=== PATIENT | female | born 1965 | race Caucasian/White ===

== ENCOUNTER 2021-12-16 10:11 | Inpatient (IN) | payer MEDICARE, MEDICAID, SELFPAY ==
--- NOTE | 2021-12-16 10:16 | XACV_ITS ---
Exam Room: [facility] Ht: 157 cm Wt: 61 kg BSA: 1.65 m2 Gender: Female : 1965 Any Known Allergies: No known allergies Exam Priority: Routine Procedure(s): Procedure Description: Diagnostic procedure Procedure Description: PCI procedure Procedure Description: Coronary IVUS Procedure Description: Drug Eluting Coronary Stent Procedure Description: PTCA Procedure Description: Miscellaneous Procedure Description: Angio-Seal Procedure Description: ACT Procedure Description: Coronary Angiography Diagnostic Cath Status: Emergency Diagnostic Findings * Ostial to Proximal Left Anterior Descending has a significant 80% hazy stenosis, PEACE: 3 flow. * Left Main has no disease. * Circumflex has no disease. * Mid Left Anterior Descending: moderate 50% stenosis, PEACE: 3 flow. * Mid Right Coronary Artery: obstructive 70% stenosis, PEACE: 3 flow. * Coronary angiography shows right dominance. PCI Status: Emergency PCI Indication: STEMI - Immediate PCI for STEMI Interventional Findings * PROCEDURE DETAIL: We engaged left main artery with XB 3.0 guide catheter. A 0.014 run-through guidewire was used to cross LAD stenosis and was placed in distal vessel. We predilated the ostial LAD stenosis with 2.5 x 12 mm noncompliant balloon. IVUS was then used to size the stent. We placed 3.0 x 15 mm resolute Eladio drug-eluting stent. Proximal LAD was postdilated with 3.25 x 8 mm noncompliant balloon. We then turned our attention to RCA. IVUS was used to size the stent. We predilated the lesion with a 2.5 x 12 mm semicompliant balloon. This was followed by placement of 4.0 x 38 mm resolute Eladio drug-eluting stent. At this time final angiogram was performed that showed excellent stent expansion, no residual stenosis and PEACE-3 flow. Guidewire and guide catheter were removed and patient left the Print And Pattern Designer in a stable condition.. * Proximal Left Anterior Descendin% stenosis treated with a AB TREK 2.50X12 RX BALLOON, ESTELLE Wise ELADIO 3.0X15 OSIEL, and ESTELLE HERNANDEZ EUPHORA RX 3.42I23EO BALLOON. 0% residual stenosis, PEACE: 3 flow. * Mid Right Coronary Artery: 70% stenosis treated with a AB TREK 2.50X12 RX BALLOON, and MDJhony R ELADIO 4.0X38 OSIEL. 0% residual stenosis, PEACE: 3 flow. Conclusions 1. Severe, hazy, thrombotic ostial LAD stenosis s/p successful revascularization with OSIEL x1. Severe proximal to mid RCA stenosis status post successful revascularization with OSIEL x1.. 2. Proximal Left Anterior Descending was treated with a Balloon, Drug Eluting Stent, and Balloon. 3. Mid Right Coronary Artery was treated with a Balloon, and Drug Eluting Stent. Recommendations * Aspirin and plavix for atleast 1 year. * High intensity statin therapy. * Transfer to ICU. * Beta jasvir and ACEi. * Cardiac rehab referral. * Has moderate mid LAD residual stenosis. Can plan on outpatient stress test later. Interventional RX Recommendation: PCI w/o planned CABG Diagnostic RX Recommendation: PCI w/o planned CABG Anticoagulation: Heparin Pressures Phase:Rest AO : 139 / 80 ( 105 ) @ 11:36:00 AM 119 / 61 ( 86 ) @ 11:51:00 AM 106 / 62 ( 81 ) @ 11:52:00 AM 137 / 76 ( 101 ) @ 11:57:00 AM 149 / 77 ( 107 ) @ 12:16:00 PM Clinical Evaluation EBL: 5mL-10mL Procedural Details Procedure Consent Obtained. Pre-Procedure Time Out. Identified patient by full name and date of as verbalized by the patient/guarantor. Does the consent match the physician's order: N/A Emergent. Accurate & Complete Informed Consent: N/A Emergent. Inpatient/Outpatient History & Physical on Chart: N/A Emergent. If H&P is completed, is and addenduem needed: N/A Emergent; If yes, is the addendum complete: N/A Emergent. Visualize and Verify Site with Patient/Guarantor: N/A. Relevant Radiology Images available: N/A Emergent. Pre-op teaching completed and patient verbalized understanding. The risks, benefits, and alternatives of sedation and/or procedure were discussed by physician. The patient agrees to continue. Procedure started. [facility] Clinical Fraility Score: 3: Managing Well. Print And Pattern Designer Indications: ACS <= 24 hours. Chest Pain Symptom Assessment: Typical Angina Symptoms. Cardiovascular Instability: No. Correct patient, site and procedure confirmed by cath team. PERRLA. 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 Lungs clear x 5 lobes. IV Site on Arrival: 22 gauge in the left hand. IV Site on Arrival: 20 gauge in the right wrist. IV Fluids: 0.9% NaCl at KVO. 0 mL infused prior to prosthetics lab technician. Oxygen started at 2liters/min via nasal canula. right radial was prepped with chloroprep then draped in the usual sterile fashion. right groin was prepped with chloroprep then draped in the usual sterile fashion. Baseline sample Acquired. HR: 99 BPM. Physician arrived. Physician scrubbed in. Immediate Pre-Procedure Time Out. Correct Patient: Yes; Correct Procedure: Yes; Correct Site: N/A Emergent; Correct Patient Position: N/A Emergent; Correct Supplies: N/A Emergent; Dried Flammable Prep: N/A Emergent; Blood Products Available: N/A Emergent;. Equipment: 6F - Radial. Cardiac Cath Pack. ACIST Manifold Kit Model BT 2000. Heparinized Saline (2 units/mL), 1000 mL bag. Lidocaine 1% infiltrated to the right radial. 600 mg Plavix pulled in ER by ER nurse. 600 mg Plavix given when pt arrived to prosthetics lab technician. Arterial access obtained. Inventory is CRD 6FR XB 3 GUIDE. A TR Band was successful obtaining hemostatsis at the Right Radial artery insertion site. TR band placed. Hemostasis obtained. Physician unable to advance sheath through radial artery due to difficult anatomy. Physician moving to femoral approach. Lidocaine 1% infiltrated to the right groin. Arterial access obtained with micropuncture set. 6 citizen of [place] XB 3 guide catheter was inserted over the wire. AP pads applied to pt. Runthrough guidewire was advanced through the guide catheter to lesion in the prox Circ. Inflation number : 1 A AB TREK 2.50X12 RX BALLOON was prepped and advanced across the Prox LAD , then inflated to 12 SOFIA for 0:06 seconds. Inflation number: 2 The AB TREK 2.50X12 RX BALLOON was reinflated across the Prox LAD, to 12 SOFIA for 0:05 seconds. Balloon out. Results checked. IVUS catheter inserted. IVUS measurements obtained. IVUS catheter removed. Inflation Number : 3 A MDT R ELADIO 3.0X15 OSIEL -Lot Number# [id number] exp date 09/11/2024 was prepped and advanced across the Prox LAD. The stent was deployed at 12 SOFIA for 0:21 seconds. Stent balloon out over wire. IVUS catheter inserted. ACT drawn. Results 352 seconds. Therapeutic limits - pre-heparin administration 90-150 seconds and monitoring heparin during a vascular procedure >250 seconds. IVUS measurements obtained. IVUS catheter removed. Inflation number : 4 A MDT NC EUPHORA RX 3.20I12JT BALLOON was prepped and advanced across the Prox LAD , then inflated to 12 SOFIA for 0:24 seconds. Inflation number: 5 The MDT NC EUPHORA RX 3.29I62GX BALLOON was reinflated across the Prox LAD, to 14 SOFIA for 0:12 seconds. Balloon out. Wire out. Results checked. Guide catheter out. A 5 citizen of [place] JR4 catheter in over wire. Multiple views taken of right coronary artery. Catheter out. Inventory is CRD 6FR JR 4 GUIDE 100cm. 6 citizen [place] JR 4 guide catheter was inserted over the wire. Runthrough guidewire was advanced through the guide catheter to lesion in the mid RCA. IVUS catheter inserted. IVUS measurement obtained. IVUS catheter removed. Inflation number: 1 The AB TREK 2.50X12 RX BALLOON was reinflated across the Mid RCA, to 12 SOFIA for 0:15 seconds. Inflation number: 2 The AB TREK 2.50X12 RX BALLOON was reinflated across the Mid RCA, to 12 SOFIA for 0:10 seconds. Inflation number: 3 The AB TREK 2.50X12 RX BALLOON was reinflated across the Mid RCA, to 12 SOFIA for 0:15 seconds. Inflation number: 4 The AB TREK 2.50X12 RX BALLOON was reinflated across the Mid RCA, to 12 SOFIA for 0:12 seconds. Balloon out. Inflation Number : 5 A ESTELLE Wise ELADIO 4.0X38 OSIEL -Lot Number# [id number] exp date 07/01/2024 was prepped and advanced across the Mid RCA. The stent was deployed at 12 SOFIA for 0:24 seconds. Stent balloon out over wire. Results checked. Wire out. Guide catheter out. ACT drawn. Results 260 seconds. Therapeutic limits - pre-heparin administration 90-150 seconds and monitoring heparin during a vascular procedure >250 seconds. Lidocaine 1% infiltrated to the right groin. A Angio-Seal VIP ([facility] [place]) was successful obtaining hemostatsis at the Right Femoral artery insertion site. Angioseal placed without complications. No signs or symptoms of hematoma noted. Sterile dressing applied per usual sterile fashion. Post Procedure: Pulses reassessed and unchanged. PERRLA. 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 No VTE prophylaxis required. Physician scrubbed out. Medication's Wasted: Nitro = 49.6 mg. Medication's Wasted: Heparin = 2000 units. Total IV fluids: 450 mL. Contrast type used: Omnipaque 300 mgI/mL, 500 mL bottle. PCI Indication: STEMI. Post-op diagnosis: stemi. Complications: none. Estimated blood loss: 5mL-10mL. Responsiveness - Normal response to verbal stimuli; alert and oriented, PERRLA. Airway - Unaffected, no intervention required; spontaneous ventilation. Circulation: W/N/L, pulses unchanged. Nausea/Vomiting: No. Procedure completed. Patient transferred by bed to ICU. Vital chart was stopped. Access Site Site: Right Radial artery Sheath Size: 6 Fr Hemostasis Method: TR Band Hemostasis Success: Successful Site: Right Femoral artery Sheath Size: 6 Fr Hemostasis Method: Angio-Seal VIP ([facility]) Hemostasis Success: Successful Procedure Medications Start: 10:21 AM Stop: 10:21 AM Medication: Heparin 25, 000units/500 mL Amount: units Route: I.V. Start: 10:23 AM Stop: 10:23 AM Medication: Versed Amount: 1 mg Route: I.V. Start: 10:23 AM Stop: 10:23 AM Medication: Fentanyl Amount: 50 mcg Route: I.V. Start: 10:28 AM Stop: 10:28 AM Medication: Versed Amount: 1 mg Route: I.V. Start: 10:33 AM Stop: 10:33 AM Medication: Heparin Amount: 2000 units Route: I.V. Start: 10:39 AM Stop: 10:39 AM Medication: Heparin Amount: 1000 units Route: I.V. Start: 10:39 AM Stop: 10:39 AM Medication: Versed Amount: 1 mg Route: I.V. Start: 10:39 AM Stop: 10:39 AM Medication: Fentanyl Amount: 25 mcg Route: I.V. Start: 10:48 AM Stop: 10:48 AM Medication: Heparin Amount: 1000 units Route: I.V. Start: 10:53 AM Stop: 10:53 AM Medication: Nitrogylcerin Amount: 200 mcg Route: I.C. Start: 10:55 AM Stop: 10:55 AM Medication: Versed Amount: 1 mg Route: I.V. Start: 11:16 AM Stop: 11:16 AM Medication: Nitrogylcerin Amount: 200 mcg Route: I.C. Start: 11:21 AM Stop: 11:21 AM Medication: Fentanyl Amount: 25 mcg Route: I.V. Start: 11:22 AM Stop: 11:22 AM Medication: Heparin Amount: 1000 units Route: I.V. I, the attending physician, have reviewed and verified all procedure medications. Yes, all medications given per verbal order History/Risk Factors Hypertension: No Dyslipidemia: No Peripheral Arterial Disease (PAD): No Myocardial Infarction (NH): No Obesity: No Renal Disease: No Prior Interventions PCI: No CABG: No Valve Surgery: No Report Signatures Finalized by Giovany Nye MD on 12/30/2021 12:39 PM
--- NOTE | 2021-12-16 10:19 | ED_ITS ---
HPI - Chest Pain General: Stated Complaint: possible stemi Time Seen by Provider: 12/16/21 10:18 Source: patient Mode of arrival: EMS History of Present Illness: 56-year-old female brought in by EMS with complaints of chest pain that began this morning while at rest. She has severe chest pain radiating to the left arm she given nitro and aspirin in route. EKG in the field showed ST elevation in a STEMI alert was called Airline Mechanic crew and Dr. Nye were present on arrival patient states chest pain is better but still persisting. Review of EMS EKG confirms diagnosis. Dr. Nye elected to take the patient based on that EKG. Plavix and heparin ordered here in the emergency room. Limited history and exam due to ST elevation NE and urgent need for coronary angioplasty complaint: chest pain Onset (ago): minute(s) Prior episodes: Yes Onset: during rest Pain location: left chest Pain radiation: left arm and left shoulder Severity: severe Quality: aching and heaviness Relieving factors: nitroglycerin Exacerbating factors: nothing Associated symptoms: Reports diaphoresis, dyspnea, nausea and sense of impending doom; Deny abdominal pain, fever(s), leg edema, palpitations, syncope or vomiting Treatment prior to arrival: aspirin and nitroglycerin Review of Systems General: Reports: Other (Limited due to patient's condition and urgent need for angiography.) Const: Reports: diaphoresis; Denies: fever(s) Card: Denies: palpitations or syncope Resp: Reports: dyspnea GI: Reports: nausea; Denies: abdominal pain or vomiting Physical Exam Const: COMMON NORMALS: no acute distress GENERAL APPEARANCE: cooperative and comfortable ORIENTATION/CONSCIOUSNESS: Yes awake, Yes oriented to person, Yes oriented to place and Yes oriented to time HENMT: COMMON NORMALS: normocephalic, atraumatic and hearing grossly normal bilaterally HEAD & SCALP: normocephalic and atraumatic Neck/C-Spine: COMMON NORMALS: no JVD Resp: COMMON NORMALS: normal respiratory effort, No retractions, No use of accessory muscles and clear to auscultation bilaterally AUSCULTATION: clear to auscultation bilaterally Cardio: COMMON NORMALS: no JVD, regular rate, regular rhythm and No murmurs present (Cardio) RATE: regular rate RHYTHM: regular rhythm GI: COMMON NORMALS: Soft to palpation and No hepatosplenomegaly present AUSCULTATION: Yes normoactive bowel sounds PALPATION: Yes Soft to palpation, No Tenderness to palpation present (GI), No Guarding due to palpation present (GI) and Yes No hepatosplenomegaly present Neuro: SENSORIUM/ORIENTATION: Yes oriented to person, Yes oriented to place and Yes oriented to time MDM - Chest Pain Medical Decision Making Field EKG scanned into the chart. Shows ST elevation anterior lateral leads. Dr. Nye present and confirms Plavix and heparin ordered. Patient taken emergently to coronary angiography Medical Records I reviewed the patient's medical records. Discharge Plan Discharge Patient Disposition: Admitted As Inpatient Clinical Impression: ST elevation (STEMI) myocardial infarction Condition: Stable Referrals: Nicol Capps DPM [Primary Care Provider] - Coding Level of Care Code ED Hospital Clinic Assistant for Artie Ba
--- NOTE | 2021-12-16 10:20 | PM.HP ---
Providers/Chief Complaint Admitting Physician: Giovany Nye MD/ Cardiology Primary Care Provider: MONA aKur Chief Complaint: STEMI History of Present Illness Swati Lomax is a 56 year old female with past medical history of hypertension and current smoker has been brought in by EMS for severe chest pain. According to patient she started having chest pain about 2 hours prior to presentation to the hospital. It was substernal and epigastric. Radiation to the left arm was noted. No prior significant cardiac history. EKG demonstrated ST elevations in leads V3 through V6. Television Installer Helper was activated and patient was brought to the Television Installer Helper emergently. She was loaded with aspirin in the field and also received Plavix 600mg and heparin bolus in ER. Coronary angiography showed severe narrowing of ostial LAD with presence of thrombus. She underwent successful revascularization with IVUS guidance of ostial LAD with OSIEL x1. Patient also had severe proximal to mid RCA stenosis and underwent successful revascularization with OSIEL x1. Review of Systems General: Reports: Other (Limited due to patient's condition and urgent need for angiography.) Const: Reports: diaphoresis; Denies: fever(s) Card: Reports: chest pain and dyspnea on exertion; Denies: palpitations or syncope Resp: Reports: dyspnea GI: Reports: nausea; Denies: abdominal pain or vomiting PFSH Acute PFSH: Medical History Hypertension Tobacco abuse Social History Smoking and tobacco status: current every day smoker Physical Exam Narrative: GENERAL: Patient is alert, awake and oriented x3. [] NECK: No jugular vein distension. [] HEENT: No cyanosis. No icterus. No pallor. [] HEART: Regular S1 and S2. No murmur, rub or gallop. [] LUNGS: Clear to auscultate bilaterally. [] ABDOMEN: Soft, nontender and nondistended. Positive bowel sounds. No guarding, rebound or tenderness. [] CENTRAL NERVOUS SYSTEM: Grossly nonfocal. [] EXTREMITIES: Lower extremities with no edema bilaterally. Pulses palpable in the lower extremities, both dorsalis pedis and posterior tibial. [] Data : 12/16/21 10:50 12/16/21 10:50 A&P Assessment and plan (1) ST elevation (STEMI) myocardial infarction: Status: Acute (2) Hypertension: Status: Acute (3) Tobacco abuse: Status: Acute Plan Patient has presented with acute anterior wall ST elevation [place]. She underwent coronary angiography emergently that demonstrated thrombotic stenosis of ostial LAD that underwent successful revascularization with OSIEL x1. She also had severe proximal to mid RCA stenosis and underwent a revascularization with OSIEL x1. Continue aspirin and Plavix for at least 1 year. High intensity statin therapy. Beta-jasvir and MAURICE inhibitor's. Order echocardiogram. Patient has residual mid LAD moderate stenosis. As an outpatient can undergo stress test to evaluate for ischemia. Attestations Medical Necessity Statement*: Care expected to cross 2 midnights. Coding Level of Care Code Acute Tuber Machine Cutter for Artie Ba Diagnoses ST elevation (STEMI) myocardial infarction I21.3 Hypertension I10 Tobacco abuse Z72.0
[2021-12-16 11:11] LABS: Basophils % 0.6 %; Eosinophils % 0.5 %; Hematocrit 38.1 % (37.0-47.0); Hemoglobin 13.2 g/dL (11.5-15.3); Lymphocytes # 1.2 10^3/uL (0.8-4.8); Lymphocytes % 18.4 %; Mean Corpuscular HGB Conc 34.6 g/dL (30.0-36.0); Mean Corpuscular Hemoglobin 33.3 pg (28.0-34.0); Mean Corpuscular Volume 96.2 fl (81-99); Mean Platelet Volume 9.5 fL (7.4-10.4); Monocytes # 0.6 10^3/uL (0.2-0.9); Monocytes % 9.4 %; Neutrophils # 4.69 10^3/uL (1.8-7.7); Neutrophils % 70.6 %; Nucleated Red Blood Cells % 0 %; Platelet Count 267 10^3/cmm (130-400); Red Blood Count 3.96 10^6/uL (4.1-5.3); Red Cell Distribution Width 12.5 % (12.1-15.1); White Blood Count 6.6 10^3/uL (4.0-10.0)
[2021-12-16 11:30] LABS: Anion Gap 16.7 (5-19); Blood Urea Nitrogen 10 mg/dL (6-20); Calcium 8.1 mg/dL (8.5-10.5); Carbon Dioxide 19 mmol/L (22-29); Chloride 99 mmol/L (98-107); Glomerular Filtration Rate 85.9 mL/min (90-130); Glucose 110 mg/dL (65-115); Osmolality Calculated 272 mOsm/kg (285-295); Potassium 3.7 mmol/L (3.5-5.1); Sodium 131 mmol/L (136-145)
[2021-12-16 11:33] LABS: Troponin T (5th) Once 941 ng/L (0-10)
--- NOTE | 2021-12-16 12:02 | USCV_ITS ---
Lomax Swati Age: 56 Gender: F : 1965 Exam Date: 12/16/2021 13:35 Ordering Phys: Giovany Nye M.D ([email or web address]) Technologist: Jah Giles Exam Location: [facility] [place] Indication: post stemi BP: 155 / 95 HR: 93 Rhythm: Sinus Technical Quality: Adequate MEASUREMENTS (Male / Female) Normal Values 2D ECHO LV Diastolic Diameter PLAX 4.0 cm 4.2 - 5.9 / 3.9 - 5.3 cm LV Systolic Diameter PLAX 2.8 cm IVS Diastolic Thickness 1.2 cm 0.6 - 1.0 / 0.6 - 0.9 cm IVS Systolic Thickness 1.4 cm LVPW Diastolic Thickness 1.5 cm 0.6 - 1.0 / 0.6 - 0.9 cm LVPW Systolic Thickness 1.4 cm LVOT Diameter 2.0 cm LV Ejection Fraction 2D Teich 59.0 % LV Ejection Fraction MOD 2C 72.0 % LV Ejection Fraction 2C AL 71.2 % LA Diameter 2.7 cm LA Width 2.1 cm Aorta at Sinotubular Diameter 2.7 cm IVC Diameter 1.9 cm M-MODE Aortic Annulus Diameter 2.3 cm LA Ao Ratio MM 1.3 MV E Point Septal Separation 1.3 cm DOPPLER AV Peak Velocity 130.0 cm/s LVOT Peak Velocity 99.0 cm/s AV Area Cont Eq vti 2.7 cm squared AV Area Cont Eq pk 2.4 cm squared MV Area PHT 5.0 cm squared Mitral E to A Ratio 0.8 MV E' Velocity 42.0 cm/s Mitral E to MV E' Ratio 10.9 Mitral E to LV E' Lateral Ratio 10.6 Mitral E to LV E' Septal Ratio 11.3 TR Peak Velocity 159.0 cm/s TR Peak Gradient 10.1 mmHg TV Peak E Velocity 123.0 cm/s Right Atrial Pressure 3.0 mmHg Pulmonary Artery Systolic Pressu 13.1 mmHg PV Peak Velocity 120.0 cm/s FINDINGS Left Ventricle Normal left ventricular size. LV systolic function is normal with EF of 40-45%. Mild to moderate hypokinesis of anterior, apical and anteroseptal buchanan. Grade 1 diastolic dysfunction Right Ventricle The right ventricle is normal in size and function. Right Atrium The right atrium is normal in size. Left Atrium The left atrium is normal in size. Mitral Valve Structurally normal mitral valve without significant stenosis or prolapse. There is no mitral regurgitation. Aortic Valve Structurally normal aortic valve without significant sclerosis or stenosis. There is no aortic regurgitation. Tricuspid Valve Structurally normal tricuspid valve without significant stenosis or regurgitation. Insufficient TR jet to calculate RVSP. Pulmonic Valve Structurally normal pulmonic valve without significant stenosis. There is no pulmonic regurgitation. Pericardium Normal pericardium without effusion. Aorta Normal ascending aorta dimension. CONCLUSIONS LV systolic function is normal with EF of 40 to 45%. Mild to moderate hypokinesis of anterior, apical and anteroseptal buchanan. Grade 1 diastolic dysfunction. No significant valvular heart disease seen No comparison studies are available Giovany Nye MD (Electronically Signed) Final Date: 16 Dec 2021 18:16 S
[2021-12-16] MEDS: sodium chloride 0.9% 1,000 ML 100 ML IV ×2 (12:13→23:00)
--- NOTE | 2021-12-16 12:17 | PC.NURSE ---
Arrived from microbiology lab technician, AO x4, TR band to R wrist clean dry and intact, R groin access site covered with gauze and tega derm clean and dry
--- NOTE | 2021-12-16 13:38 | PC.PHAR ---
pt states she takes no rx medications-pt states she hasnt seen a dr in over 5 years pt states she use to be on alot of different medications pt states she stop taking her meds 5 years ago-pt states she only takes a purple tab thats a sleep aid from [employer] [facility]-
--- NOTE | 2021-12-16 13:44 | PC.NURSE ---
Plant Specialist took pt before meds could be administered or nurse assessment could be completed.
[2021-12-16 14:00] VITALS: PULSE 79
[2021-12-16 18:00] VITALS: BP 150/96; PULSE 90; RESP 21
[2021-12-16 20:00] VITALS: BP 139/101; PULSE 80; RESP 27; TEMP 37; O2SAT 95
[2021-12-16] MEDS: metoprolol tartrate 25 mg Tablet PO (20:12)
[2021-12-16] MEDS: atorvastatin 40 mg Tablet 80 MG PO (20:12)
[2021-12-16 22:00] VITALS: BP 140/92; PULSE 71; RESP 19; O2SAT 94
[2021-12-17] VITALS (16 sets, daily range): BP systolic 112–157; BP diastolic 61–96; PULSE 60–88; RESP 16–25; TEMP 36.8–36.9; O2SAT 94–97
[2021-12-17 04:42] LABS: Basophils # 0.1 10^3/uL (0.0-0.1); Basophils % 0.8 %; Eosinophils # 0.2 10^3/uL (0.0-0.8); Hematocrit 41.4 % (37.0-47.0); Hemoglobin 13.6 g/dL (11.5-15.3); Lymphocytes # 2.3 10^3/uL (0.8-4.8); Lymphocytes % 30.1 %; Mean Corpuscular HGB Conc 32.9 g/dL (30.0-36.0); Mean Corpuscular Hemoglobin 33.3 pg (28.0-34.0); Mean Corpuscular Volume 101.2 fl (81-99); Monocytes # 0.7 10^3/uL (0.2-0.9); Monocytes % 8.5 %; Neutrophils # 4.47 10^3/uL (1.8-7.7); Neutrophils % 58.1 %; Nucleated Red Blood Cells % 0 %; Platelet Count 247 10^3/cmm (130-400); Red Blood Count 4.09 10^6/uL (4.1-5.3); Red Cell Distribution Width 12.8 % (12.1-15.1); White Blood Count 7.7 10^3/uL (4.0-10.0)
[2021-12-17 05:43] LABS: Blood Urea Nitrogen 9 mg/dL (6-20); Calcium 8.5 mg/dL (8.5-10.5); Carbon Dioxide 14 mmol/L (22-29); Chloride 103 mmol/L (98-107); Glomerular Filtration Rate 126.7 mL/min (90-130); Glucose 94 mg/dL (65-115); Osmolality Calculated 274 mOsm/kg (285-295); Sodium 133 mmol/L (136-145)
[2021-12-17 05:45] LABS: Anion Gap 20.1 (5-19); Potassium 4.1 mmol/L (3.5-5.1)
[2021-12-17] MEDS: aspirin 81 mg EC Tablet PO (08:35)
[2021-12-17] MEDS: metoprolol tartrate 25 mg Tablet PO ×2 (08:35→20:19)
[2021-12-17] MEDS: lisinopril 5 mg Tablet PO (08:35)
[2021-12-17] MEDS: clopidogrel 75 mg Tablet PO (08:35)
--- NOTE | 2021-12-17 16:58 | PM.PN ---
Subjective Subjective: Patient is doing well. No complaints of chest pain or shortness of breath Vitals/I&O/Wt Last Vital Signs Temp 98.3 F 12/17/21 14:00 Pulse 88 12/17/21 14:00 Resp 18 12/17/21 14:00 BP 131/72 12/17/21 16:00 Pulse Ox 94 12/17/21 14:00 12/17/21 12/17/21 12/17/21 06:59 14:59 22:59 Intake Total 350 / 350 Output Total 350 / 500 Balance -350 / 900 350 / 350 Physical Exam Narrative: GENERAL: Patient is alert, awake and oriented x3. [] NECK: No jugular vein distension. [] HEENT: No cyanosis. No icterus. No pallor. [] HEART: Regular S1 and S2. No murmur, rub or gallop. [] LUNGS: Clear to auscultate bilaterally. [] ABDOMEN: Soft, nontender and nondistended. Positive bowel sounds. No guarding, rebound or tenderness. [] CENTRAL NERVOUS SYSTEM: Grossly nonfocal. [] EXTREMITIES: Lower extremities with no edema bilaterally. Pulses palpable in the lower extremities, both dorsalis pedis and posterior tibial. [] Data : 12/17/21 03:17 12/17/21 03:17 A&P Assessment and plan (1) ST elevation (STEMI) myocardial infarction: Status: Acute (2) Hypertension: Status: Acute (3) Tobacco abuse: Status: Acute Plan Patient has presented with acute anterior wall ST elevation [place]. She underwent coronary angiography emergently that demonstrated thrombotic stenosis of ostial LAD that underwent successful revascularization with OSIEL x1. She also had severe proximal to mid RCA stenosis and underwent a revascularization with OSIEL x1. Continue aspirin and Plavix for at least 1 year. High intensity statin therapy. Beta-jasvir and MAURICE inhibitor's initiated Detailed discussion done regarding smoking cessation. ECHO shows mildly reduced LV systolic function Patient has residual mid LAD moderate stenosis. As an outpatient can undergo stress test to evaluate for ischemia. Plan for discharge tomorrow Attestations Medical Necessity Statement*: Care expected to cross 2 midnights. Coding Level of Care Code Acute Dewatering Filtering Supervisor for Artie Ba Diagnoses ST elevation (STEMI) myocardial infarction I21.3 Hypertension I10 Tobacco abuse Z72.0
[2021-12-17] MEDS: atorvastatin 40 mg Tablet 80 MG PO (20:20)
[2021-12-18] VITALS (10 sets, daily range): BP systolic 131–138; BP diastolic 69–96; PULSE 63–79; RESP 12–20; TEMP 36.7; O2SAT 95–98
[2021-12-18 04:34] LABS: Basophils # 0.1 10^3/uL (0.0-0.1); Basophils % 0.6 %; Eosinophils # 0.1 10^3/uL (0.0-0.8); Eosinophils % 1.6 %; Hematocrit 36.2 % (37.0-47.0); Hemoglobin 12.7 g/dL (11.5-15.3); Lymphocytes # 2.3 10^3/uL (0.8-4.8); Lymphocytes % 26.2 %; Mean Corpuscular HGB Conc 35.1 g/dL (30.0-36.0); Mean Corpuscular Volume 96.8 fl (81-99); Mean Platelet Volume 10.8 fL (7.4-10.4); Monocytes # 0.8 10^3/uL (0.2-0.9); Monocytes % 8.9 %; Neutrophils # 5.35 10^3/uL (1.8-7.7); Neutrophils % 62.2 %; Nucleated Red Blood Cells % 0 %; Platelet Count 239 10^3/cmm (130-400); Red Blood Count 3.74 10^6/uL (4.1-5.3); Red Cell Distribution Width 12.5 % (12.1-15.1); White Blood Count 8.6 10^3/uL (4.0-10.0)
[2021-12-18 07:32] LABS: Anion Gap 15.7 (5-19); Blood Urea Nitrogen 6 mg/dL (6-20); Calcium 8.8 mg/dL (8.5-10.5); Carbon Dioxide 21 mmol/L (22-29); Chloride 102 mmol/L (98-107); Glomerular Filtration Rate 163.9 mL/min (90-130); Glucose 100 mg/dL (65-115); Osmolality Calculated 278 mOsm/kg (285-295); Potassium 3.7 mmol/L (3.5-5.1); Sodium 135 mmol/L (136-145)
[2021-12-18] MEDS: aspirin 81 mg EC Tablet PO (09:10)
[2021-12-18] MEDS: metoprolol tartrate 25 mg Tablet PO (09:10)
[2021-12-18] MEDS: clopidogrel 75 mg Tablet PO (09:10)
[2021-12-18] MEDS: lisinopril 5 mg Tablet PO (09:10)
--- NOTE | 2021-12-18 09:14 | P.DS_ITS ---
Discharge Providers Date of Admission: 12/16/21 10:57 Date of Discharge: December 18, 2021 Attending Provider at Admission: Giovany Nye M.D Attending Provider at Discharge: Giovany Nye M.D Diagnoses at Discharge Discharge Diagnosis (1) ST elevation (STEMI) myocardial infarction: (2) Hypertension: Status: Acute (3) Tobacco abuse: Status: Acute Reason for Visit Reason for Visit: STEMI Brief History: 56 year old female with past medical history of hypertension and current smoker has been brought in by EMS for severe chest pain.? According to patient she started having chest pain about 2 hours prior to presentation to the hospital.? It was substernal and epigastric.? Radiation to the left arm was noted.? No prior significant cardiac history.? EKG demonstrated ST elevations in leads V3 through V6.? Opto Mechanical Engineer was activated and patient was brought to the Opto Mechanical Engineer emergently.? She was loaded with aspirin in the field and also received Plavix 600mg and heparin bolus in ER. Hospital Course Hospital Course 56 year old female with past medical history of hypertension and current smoker has been brought in by EMS for severe chest pain.? According to patient she started having chest pain about 2 hours prior to presentation to the hospital.? It was substernal and epigastric.? Radiation to the left arm was noted.? No prior significant cardiac history.? EKG demonstrated ST elevations in leads V3 through V6.? Opto Mechanical Engineer was activated and patient was brought to the Opto Mechanical Engineer emergently.? She was loaded with aspirin in the field and also received Plavix 600mg and heparin bolus in ER.? Coronary angiography showed severe narrowing of ostial LAD with presence of thrombus.? She underwent successful revascularization with IVUS guidance of ostial LAD with OSIEL x1.? Patient also had severe proximal to mid RCA stenosis and underwent successful revascularization with OSIEL x1. Patient stayed in the hospital and was stable. Echocardiogram showed mildly reduced LV systolic function with EF of 40 to 45%. Regional wall motion abnormalities were seen in the distribution of LAD territory. Patient was discharged home with outpatient cardiology follow-up. Physical Exam Narrative: GENERAL: Patient is alert, awake and oriented x3. [] NECK: No jugular vein distension. [] HEENT: No cyanosis. No icterus. No pallor. [] HEART: Regular S1 and S2. No murmur, rub or gallop. [] LUNGS: Clear to auscultate bilaterally. [] ABDOMEN: Soft, nontender and nondistended. Positive bowel sounds. No guarding, rebound or tenderness. [] CENTRAL NERVOUS SYSTEM: Grossly nonfocal. [] EXTREMITIES: Lower extremities with no edema bilaterally. Pulses palpable in the lower extremities, both dorsalis pedis and posterior tibial. [] Discharge Data Studies Completed and Pending Completed Studies During Hospitalization Category Date Time Status CV. 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 request for service Stat Exams 12/16/21 10:16 Taken Basic Metabolic Panel AM LABS Lab 12/19/21 04:00 Ordered Complete Blood Count w/Auto AM LABS Lab 12/19/21 04:00 Ordered Laboratory Results WBC 8.6 10^3/uL (4.0-10.0) 12/18/21 03:55 RBC 3.74 10^6/uL (4.1-5.3) L 12/18/21 03:55 Hgb 12.7 g/dL (11.5-15.3) 12/18/21 03:55 Hct 36.2 % (37.0-47.0) L 12/18/21 03:55 MCV 96.8 fl (81-99) 12/18/21 03:55 MCH 34.0 pg (28.0-34.0) 12/18/21 03:55 MCHC 35.1 g/dL (30.0-36.0) D 12/18/21 03:55 RDW 12.5 % (12.1-15.1) 12/18/21 03:55 Plt Count 239 10^3/cmm (130-400) 12/18/21 03:55 MPV 10.8 fL (7.4-10.4) H 12/18/21 03:55 Neut % (Auto) 62.2 % 12/18/21 03:55 Lymph % (Auto) 26.2 % 12/18/21 03:55 Cotton % (Auto) 8.9 % 12/18/21 03:55 Eos % (Auto) 1.6 % 12/18/21 03:55 Baso % (Auto) 0.6 % 12/18/21 03:55 Neut # (Auto) 5.35 10^3/uL (1.8-7.7) 12/18/21 03:55 Lymph # (Auto) 2.3 10^3/uL (0.8-4.8) 12/18/21 03:55 Cotton # (Auto) 0.8 10^3/uL (0.2-0.9) 12/18/21 03:55 Eos # (Auto) 0.1 10^3/uL (0.0-0.8) 12/18/21 03:55 Baso # (Auto) 0.1 10^3/uL (0.0-0.1) 12/18/21 03:55 Nucleated RBC % (auto) 0 % 12/18/21 03:55 Nucleated RBCs # 0.0 /100WBC 12/18/21 03:55 Sodium 135 mmol/L (136-145) L 12/18/21 06:49 Potassium 3.7 mmol/L (3.5-5.1) 12/18/21 06:49 Chloride 102 mmol/L (98-107) 12/18/21 06:49 Carbon Dioxide 21 mmol/L (22-29) L 12/18/21 06:49 Anion Gap 15.7 (5-19) 12/18/21 06:49 BUN 6 mg/dL (6-20) 12/18/21 06:49 Creatinine 0.4 mg/dL (0.5-0.9) L 12/18/21 06:49 GFR Calculation 163.9 mL/min (90-130) H 12/18/21 06:49 Glucose 100 mg/dL (65-115) 12/18/21 06:49 Calculated Osmolality 278 mOsm/kg (285-295) L 12/18/21 06:49 Calcium 8.8 mg/dL (8.5-10.5) 12/18/21 06:49 Troponin T Gen 5 ng/L 941 ng/L (0-10) H* 12/16/21 10:50 Vitals Last Vital Signs Temp 98.0 F 12/18/21 03:38 Pulse 79 12/18/21 09:00 Resp 16 12/18/21 09:00 BP 137/69 12/18/21 09:00 Pulse Ox 98 12/18/21 09:00 Discharge Plan Discharge Patient Disposition: Home Condition: Stable Prescriptions: New aspirin 81 mg Tablet,Delayed Release (Dr/Ec) 81 mg PO DAILY Qty: 90 3RF atorvastatin 40 mg Tablet 80 mg PO BEDTIME Qty: 90 3RF clopidogrel 75 mg Tablet 75 mg PO DAILY Qty: 90 3RF nitroglycerin 0.4 mg Tablet, Sublingual 0.4 mg sublingual Q5M PRN (Reason: Chest Pain) Qty: 30 0RF lisinopril 5 mg Tablet 5 mg PO DAILY Qty: 90 3RF metoprolol tartrate 25 mg Tablet 25 mg PO BID@0900,2100 Qty: 120 2RF Continued Sleep Aid (diphenhydramine) 25 mg Tablet 25 mg PO BEDTIME PRN (Reason: Sleep) 0RF Discharge Orders: Discharge Order (Routine); Ordered 12/18/21 Ordered By: iGovany Nye Referrals: Alexnadre Harvey DO [Physician] - (For new patient referral, have scheduled you for follow up with for the following date of Saturday, DECEMBER 25, 2021 TIME OF 10:00 AM) Giovany Nye M.D [Physician] - 1 month (this appointment has been scheduled -FEBRUARY 05, TIME OF 3:45 PM ) Katerina Paul FNP [Nurse Practitioner] - 7-10 days (this appointment has been scheduled ,Thursday time of 11:00 am will need wound check , from angiogram procedure and lab test ,) Discharge Diet: Cardiac Discharge Activity: Increase activity as tolerated Patient Instructions: Metoprolol (By mouth), Nitroglycerin (By mouth), Lisinopril (By mouth), Aspirin (By mouth) (Kieran Extra Strength, Kieran Aspirin Children[facility],..., Atorvastatin (By mouth) (Lipitor), Clopidogrel (By mouth) (Plavix), Heart Attack (DC), Coronary Angioplasty (DC), Heart Healthy Diet (DC), Opioid Safety, Post Angiogram Home Care Instructions, Post Heart Attack St oplight Activity Restrictions/Additional Instructions: Please do not lift more than 5 pounds of weight for the next 5 days Discharge Attestations Time Spent in Discharge Care*: greater than 30 min Quality Metrics Clinical Quality Measures [ Acute Myocardial Infaction { Clinical Trial Participant: No; Contraindication to aspirin: None; Aspirin prescribed; Contraindication to statin: None; Statin prescribed; Contraindication to PCI: None; PCI performed;}] Coding Level of Care Code Acute [facility] note Diagnoses ST elevation (STEMI) myocardial infarction I21.3 Hypertension I10 Tobacco abuse Z72.0
--- NOTE | 2021-12-18 11:07 | PC.NURSE ---
Discharge instructions given to patient, prescriptions sent to pharmacy, IV removed. Patient waiting on ride.
--- NOTE | 2021-12-18 12:38 | PC.NURSE ---
Patient ambulated to private vehicle with belongings, accompanied by this nurse and daughter. No new complaints.
== END 2021-12-18 12:25 | disposition home or self-care (01) | DRG 247 ==
LOC: ER 10:30 → CCL 10:30 → ICU 10:59
PROVIDERS: Admitting Provider Internal Medicine; Emergency Provider Family Medicine; Visit Provider Internal Medicine
PROC: 027135Z Dilation of Coronary Artery, Two Arteries with Two Drug-eluting Intraluminal Devices, Percutaneous Approach (ICD-10-PCS; principal; 2021-12-16 10:00)
PROC: 027135Z Dilation of Coronary Artery, Two Arteries with Two Drug-eluting Intraluminal Devices, Percutaneous Approach (ICD-10-PCS; 2021-12-16 10:00)
DX: I21.09 ST elevation (STEMI) myocardial infarction involving other coronary artery of anterior wall (principal); I10 Essential (primary) hypertension; F17.210 Nicotine dependence, cigarettes, uncomplicated; I25.10 Atherosclerotic heart disease of native coronary artery without angina pectoris
CPT/HCPCS: 36415; 80048; 84484; 85025; 85347; 92978; 92979; 93306; 93454; 99152; 99153; C1725; C1753; C1760; C1769; C1874; C1887; C1894; C9600; C9601; J1644; J2250; J3010; J3490; J7030; Q9967

== ENCOUNTER → 2022-01-01 14:50 | Outpatient (BNVA) | payer MEDICAID, SELFPAY | PROVIDERS: PCP Family Medicine; Visit Provider Nurse Practitioner Family | DX: I25.10 Atherosclerotic heart disease of native coronary artery without angina pectoris (principal); Z71.6 Tobacco abuse counseling; I10 Essential (primary) hypertension; F17.200 Nicotine dependence, unspecified, uncomplicated | CPT/HCPCS: 36415; 80048; 99214 ==

== ENCOUNTER → 2022-03-11 11:26 | Outpatient (BNVA) | payer MEDICARE, MEDICAID, SELFPAY | PROVIDERS: PCP Family Medicine; Visit Provider Internal Medicine Cardiovascular Disease | DX: I25.10 Atherosclerotic heart disease of native coronary artery without angina pectoris (principal); I10 Essential (primary) hypertension; I25.2 Old myocardial infarction; Z95.5 Presence of coronary angioplasty implant and graft; F17.200 Nicotine dependence, unspecified, uncomplicated | CPT/HCPCS: 99213 ==

== ENCOUNTER → 2023-01-30 10:10 | Outpatient (BNVA) | payer MEDICARE, MEDICAID, SELFPAY | PROVIDERS: PCP Family Medicine; Visit Provider Internal Medicine | DX: I25.10 Atherosclerotic heart disease of native coronary artery without angina pectoris (principal); I10 Essential (primary) hypertension; Z72.0 Tobacco use; Z95.5 Presence of coronary angioplasty implant and graft; I25.2 Old myocardial infarction | CPT/HCPCS: 99214 ==

== ENCOUNTER → 2024-03-17 11:58 | Outpatient (BNVA) | payer MEDICARE, MEDICAID, SELFPAY | PROVIDERS: PCP Family Medicine; Visit Provider Internal Medicine | DX: I25.10 Atherosclerotic heart disease of native coronary artery without angina pectoris (principal); I10 Essential (primary) hypertension; Z72.0 Tobacco use; Z95.5 Presence of coronary angioplasty implant and graft; I25.2 Old myocardial infarction | CPT/HCPCS: 99214 ==

== ENCOUNTER → 2024-11-03 13:16 | Outpatient (BNVA) | payer OTHER, MEDICAID, SELFPAY | PROVIDERS: PCP Family Medicine; Visit Provider Nurse Practitioner Family | DX: I10 Essential (primary) hypertension (principal); I25.10 Atherosclerotic heart disease of native coronary artery without angina pectoris; Z95.5 Presence of coronary angioplasty implant and graft; Z79.01 Long term (current) use of anticoagulants; Z79.82 Long term (current) use of aspirin; I25.2 Old myocardial infarction; F17.210 Nicotine dependence, cigarettes, uncomplicated | CPT/HCPCS: 99214 ==

== ENCOUNTER 2025-06-13 02:16 | Inpatient (IN) | payer OTHER, MEDICAID, SELFPAY ==
[2025-06-13] VITALS (33 sets, daily range): BP systolic 124–218; BP diastolic 61–119; PULSE 64–113; RESP 13–37; TEMP 36.6–36.8; O2SAT 90–99; BMI 21.9
--- NOTE | 2025-06-13 02:22 | ECG_ITS ---
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 Measurements Intervals Morgan Rate: 81 P: 30 ND: 116 QRS: 32 QRSD: 90 T: 68 QT: 420 QTc: 488 Interpretive Statements SINUS RHYTHM WITH SINUS ARRHYTHMIA WITH SHORT ND INTERVAL SEPTAL MYOCARDIAL INFARCTION , OF INDETERMINATE AGE [40+ ms Q WAVE IN V1/V2] No previous ECG available for comparison Electronically Signed On 06-13-2025 21:56:07 FREIGHT AIR BRAKE FITTER by Derrick Liriano M.D. [id number]
--- OUTSIDE RECORDS SUMMARY | 2025-06-13 02:25 | XMS_ITS | Clinical Summary ---
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 Gender Identity Not on file Sexual Orientation Not on file Plan of Treatment Health Maintenance Due Date Last Done Comments DTAP/TDAP/TD VACCINES (1 - Tdap) 1982 HPV/Cotest (21-29) 01/30/1984 CERVICAL CANCER SCREENING 1993 HPV/Cotest (30-65) 1993 PAP SMEAR 1993 BREAST CANCER SCREENING 2003 COLORECTAL SCREENING 01/30/2008 Colorectal Cancer Screening 01/30/2008 FIT-DNA Q 3 years 01/30/2008 FIT/FOBT Q 1 year 01/30/2008 Flex Sig/CT Colonography Q 5 years 01/30/2008 ZOSTER VACCINE (1 of 2) 2013 INFLUENZA VACCINE (#1) 2025 RSV VACCINE (60+ or ) (1 - 1-dose 75+ series) 2038 Insurance MEDICARE PART A AND B [place]ICAID [place]
--- OUTSIDE RECORDS SUMMARY | 2025-06-13 02:25 | XMS_ITS | Encounter Summary ---
Author Organization [email or web address] Address [address] [place] [address] Care Team Providers Care Tactical Air Defense Controller Name Role Phone Unavailable Primary Care Provider Unavailabl e Encounter Details Date Type Department Care Team (Late st Contact Info) Description 11/11/2007 Inpatient Historical HIS IN BED Ji Martel MD NO ADDRESS ON FILE Intermediate Coronary Syndrome (CMS/HCC) Social History Tobacco Use Types Packs/Day Years Used Date Smoking Tobacco: Never Assessed Comments Unknown Sex and Gender Information Value Date Recorded Sex Assigned at Not on file 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 Gender Identity Not on file Sexual Orientation Not on file documented as of this encounter Plan of Treatment Not on file documented as of this encounter Procedures Procedure Name Priority Date/Time Associated Diagnosis Comments PT AND APTT Routine 11/12/2007 4:50 AM CDT CBC WITH DIFFERENTIAL Routine 11/12/2007 4:50 AM CDT BASIC METABOLIC PANEL Routine 11/12/2007 4:50 AM CDT documented in this encounter Results * PT AND APTT (11/12/2007 4:50 AM CDT) INR 0.9 [facility] Comment: Expected Values for INR: DVT/PE Goal INR 2.5; range 2.0 - 3.0 Valve Replacement Tissue Goal INR 2.5; range 2.0 - 3.0 Mechanical Goal INR 3.0; range 2.5 - 3.5 POST-PR Goal INR 2.5; range 2.0 - 3.0 or Goal 3.0; range 2.5 - 3.5 Atrial Fibrillation Goal INR 2.5; range 2.0 - 3.0 Ischemic Stroke Goal INR 2.5; range 2.0 - 3.0 For additional information see Guidelines for Anticoagulation available from the pharmacy [facility] [phone] PTT 29.5 22.5 - 36.5 Secs [facility] Comment: Therapeutic Range: Hi-level PE/DVT heparin protocol 80.1 -95.0 sec Lo-level PE/DVT heparin protocol 67.1 - 80.0 sec Cardiac Heparin Protocol 67.1 - 85.0 sec Neuro Heparin Protocol 67.1 - 80.0 sec As of 10/28/2007 note change in APTT Normal Range. PROTIME 13.5 12.8 - 15.8 Secs [facility] Comment:As of 2007 not e change in normal range. Blood specimen (specimen) 11/12/2007 4:50 AM CDT 11/12/2007 4:58 AM CDT Ji Martel MD HEMATOLOGY ORDERABLES Edited [facility] [address] [place] [address] * (ABNORMAL) CBC WITH DIFFERENTIAL (11/12/2007 4:50 AM CDT) EOSINOPHIL ABSOLUTE 0.2 0.0 - 0.7 K/ul [facility] EOSINOPHILS 3.0 0.0 - 7.0 % [facility] RBC 4.09(L) 4.20 - 5.40 Mil/ul [facility] MCHC 33.2 30.0 - 35.0 g/dL [facility] LYMPHOCYTE ABSOLUTE 2.8 1.2 - 4.0 K/ul [facility] LYMPHOCYTES 49.8(H) 24.0 - 44.0 % [facility] MCV 94.4 84.0 - 103.0 Fl [facility] BASOPHILS 0.9 0.0 - 1.0 % [facility] MPV 9.6 8.9 - 12.8 Fl [facility] BASOPHILS ABSOLUTE 0.1 0.0 - 0.2 K/ul [facility] HEMOGLOBIN 12.8 12.0 - 16.0 g/dL [facility] MONOCYTES 12.5(H) 2.0 - 10.0 % [facility] RDW 13.2 11.0 - 14.5 % [facility] MONOCYTE ABSOLUTE 0.7(H) 0.1 - 0.6 K/ul [facility] WBC 5.6 4.5 - 11.0 K/ul [facility] NEUTROPHILS 33.8(L) 42.2 - 75.2 % [facility] MCH 31.3 27.0 - 34.0 pg [facility] NEUTROPHIL ABSOLUTE 1.9(L) 2.0 - 8.0 K/ul [facility] HEMATOCRIT 38.6 36.0 - 46.0 % [facility] PLATELETS 343 140 - 440 K/ul [facility] Blood specimen (specimen) 11/12/2007 4:50 AM CDT 11/12/2007 4:59 AM CDT Ji Martel MD HEMATOLOGY ORDERABLES Final Re sult [facility] [address] [place] [address] * (ABNORMAL) BASIC METABOLIC PANEL (11/12/2007 4:50 AM CDT) SODIUM 136 136 - 145 mEq/L [facility] ANION GAP 9 9 - 20 mEq/L [facility] BUN 24(H) 7 - 17 mg/dL [facility] CO2 25 22 - 32 mmol/l [facility] OSMOLALITY, CALCULATED 284 275 - 295 mOsm/Kg [facility] POTASSIUM 4.1 3.5 - 5.0 mEq/L [facility] CREATININE 1.0 0.7 - 1.2 mg/dL [facility] CALCIUM 9.3 8.4 - 10.5 mg/dL [facility] GLUCOSE 93 70 - 110 mg/dL [facility] CHLORIDE 106 95 - 110 mEq/L [facility] Blood specimen (specimen) 11/12/2007 4:50 AM CDT 11/12/2007 4:59 AM CDT us Ji Martel MD CHEMISTRY ORDERABLES Final Res ult Performing Organization Address City/State/[facility] Co de Phone Number [facility] [address] [place] [address] documented in this encounter Visit Diagnoses Diagnosis Intermediate coronary syndrome (CMS/HCC) Intermediate coronary syndrome documented in this encounter
--- NOTE | 2025-06-13 02:32 | W.ED.CHESTPA ---
HPI - Chest Pain General: Chief Complaint: ER Hold Stated Complaint: Chest pain Time Seen by Provider: 06/13/25 02:20 History of Present Illness: 60yo F w/pmhx of CAD s/p anterior wall NC in 2021 w/LAD stenting, also noted RCA stenosis s/p stenting, presents with chest pain. Pain onset was at 21:00. Patient states that she was sleeping when she started experiencing a squeezing type chest pain without radiation, associated with diaphoresis, nausea, vomiting. Patient states when she ambulated around the house and to the bathroom, she felt that the chest pain was worse. She has not had a runny nose, sore throat, cough, hemoptysis, syncope or lightheadedness. She denies any lower extremity edema or asymmetry. Patient states that she is not experiencing significant abdominal pain and has not had diarrhea, dysuria, blood in stool or urine. Patient states that pain is not similar to a previous heart attack but it has been improved with nitroglycerin per EMS. She states pain is 5/10 on my exam. She is compliant with her medications and continues to make an effort to stop smoking. Related Data Home Medications ?Medication ?Instructions ?Recorded ?Confirmed diphenhydramine HCl 25 mg tablet 25 mg PO BEDTIME PRN Sleep 12/16/21 11/03/24 (Sleep Aid (diphenhydramine)) Previous Rx's ?Medication ?Instructions ?Recorded aspirin 81 mg tablet,delayed 81 mg PO DAILY #90 tabs 12/18/21 release nitroglycerin 0.4 mg sublingual See Rx Instructions .Route 04/04/24 tablet .COMPLEX #25 tabs metoprolol tartrate 25 mg tablet See Rx Instructions .Route 07/26/24 .COMPLEX #180 tabs clopidogrel 75 mg tablet See Rx Instructions .Route 11/04/24 .COMPLEX #90 tabs atorvastatin 40 mg tablet See Rx Instructions .Route 03/01/25 .COMPLEX #90 tabs lisinopril 20 mg tablet See Rx Instructions .Route 03/01/25 .COMPLEX #90 tabs Allergies Allergy/AdvReac Type Severity Reaction Status Date / Time No Known Allergies Allergy Verified 03/17/24 12:29 [facility] ED PFS: Medical History Anterior wall myocardial infarction Atherosclerosis of coronary artery Tobacco abuse Hypertension ST elevation (STEMI) myocardial infarction Surgical History Stented coronary artery Social History Smoking and tobacco/nicotine status: current every day tobacco/nicotine user (1/2 PPD) Physical Exam Narrative: EXAM NARRATIVE: Vital signs were reviewed. Patient is alert and oriented. Patient is breathing comfortably, no increased WOB or accessory muscle use. SpO2 is above 95% on RA. Patient has clear lungs b/l, no rhonchi, wheezing or crackles. No hypotension or tachycardia. Abdomen is soft, nondistended and nontender. Patient is moving all extremities, no deformity or gross injury. No lower extremity edema or asymmetry. Course Vital Signs: Vital signs: Vital Signs Temperature 97.9 F 06/13/25 03:21 Pulse Rate 73 06/13/25 05:07 Respiratory Rate 16 06/13/25 05:07 Blood Pressure 163/89 06/13/25 05:07 Pulse Oximetry 99 06/13/25 05:07 Oxygen Delivery Me thod Room Air 06/13/25 05:07 MDM - Chest Pain Medical Decision Making 60-year-old female presents with a chief complaint of chest pain at rest starting at 21:00 yesterday evening. Differential diagnosis includes, but is not limited to, ACS, myocarditis, pericarditis, pneumonia, viral upper respiratory infection, PE, GERD, other. On initial exam, patient is hemodynamically stable nontoxic appearing. EKG was personally reviewed and interpreted and shows no STEMI. Patient was evaluated CBC, BMP, troponin, BNP, EKG, chest x-ray and treated with IV morphine and IV Zofran. Patient has a mildly elevated white blood cell count which is nonspecific. Patient is not anemic. Patient has normal kidney function but is hyponatremic. She has a normal potassium. Patient has a troponin within normal limits and only mildly elevated BNP. Chest x-ray does not show acute consolidation, pneumothorax, pleural effusion or significant pulmonary edema. Repeat EKG does show new T wave inversions in precordial leads including V3 through V5. Due to this, discussed patient with Dr. Partida who deems that patient is not a candidate for emergent cath. She has a HEART score of 6 and will be admitted for ACS r/o. Lab Data 06/13/25 02:20 06/13/25 02:20 Radiology Impressions Chest X-Ray 06/13/25 04:15 IMPRESSION: No focal consolidation, pleural effusion, or pneumothorax. Laboratory Results WBC 14.88 10^3/uL (3.29-11.43) H 06/13/25 02:20 RBC 4.54 10^6/uL (3.85-5.65) 06/13/25 02:20 Hgb 15.40 g/dL (11.27-16.99) 06/13/25 02:20 Hct 43.7 % (36-47) 06/13/25 02:20 MCV 96.3 fl (85-98) 06/13/25 02:20 MCH 33.9 pg (27-33) H 06/13/25 02:20 MCHC 35.2 g/dL (30-55) 06/13/25 02:20 RDW 12.9 % (12.1-15.1) 06/13/25 02:20 Plt Count 309 10^3/cmm (157-399) 06/13/25 02:20 MPV 9.4 fL (7.4-10.4) 06/13/25 02:20 Neut % (Auto) 83.7 % 06/13/25 02:20 Lymph % (Auto) 9.4 % 06/13/25 02:20 Whitman % (Auto) 5.8 % 06/13/25 02:20 Eos % (Auto) 0.1 % 06/13/25 02:20 Baso % (Auto) 0.4 % 06/13/25 02:20 Neut # (Auto) 12.45 10^3/uL (1.8-7.7) H 06/13/25 02:20 Lymph # (Auto) 1.4 10^3/uL (0.8-4.8) 06/13/25 02:20 Whitman # (Auto) 0.9 10^3/uL (0.2-0.9) 06/13/25 02:20 Eos # (Auto) 0.0 10^3/uL (0.0-0.8) 06/13/25 02:20 Baso # (Auto) 0.1 10^3/uL (0.0-0.1) 06/13/25 02:20 Nucleated RBC % (auto) 0 % 06/13/25 02:20 Nucleated RBCs # 0.0 /100WBC 06/13/25 02:20 Sodium 128 mmol/L (136-145) L 06/13/25 02:20 Potassium 4.2 mmol/L (3.5-5.1) 06/13/25 02:20 Chloride 95 mmol/L (98-107) L 06/13/25 02:20 Carbon Dioxide 17 mmol/L (22-29) L 06/13/25 02:20 Anion Gap 20.2 (5-19) H 06/13/25 02:20 BUN 7 mg/dL (8-23) L 06/13/25 02:20 Creatinine 0.5 mg/dL (0.5-0.9) 06/13/25 02:20 GFR Calculation 125.0 mL/min (90-130) 06/13/25 02:20 Glucose 116 mg/dL (65-115) H 06/13/25 02:20 Calculated Osmolality 265 mOsm/kg (285-295) L 06/13/25 02:20 Calcium 9.0 mg/dL (8.5-10.5) 06/13/25 02:20 Troponin T Baseline 7 ng/L (0-10) 06/13/25 02:20 NT-Pro-B Natriuret Pep 499 pg/mL (0-125) H 06/13/25 02:20 All radiology interpretation(s) finalized by discharge EKG Data EKG 1: Interpretation: Normal sinus rhythm with a heart rate of 81, normal axis, normal intervals, no STEMI. Q waves in septal leads. EKG 2: Interpretation: Normal sinus rhythm with a heart rate of 66, normal axis, normal intervals, no STEMI but there are new TWI in V3-V5 which could be concerning for ischemia. Discharge Plan Discharge Admit Provider: Florencia Norwood Condition: Stable Coding Level of Care Code ED Brick Stacker for g Fwd Heart Score HEART Score Components History: Highly Suspicious EKG: Non-specific Changes Age: 45-64 yrs Risk Factors: >/=3 Risk Factors Troponin: Baseline Trop <16 ng/L HEART Score RESULT HEART Score: 6
[2025-06-13 03:13] LABS: Hematocrit 43.7 % (36-47); Hemoglobin 15.40 g/dL (11.27-16.99); Mean Corpuscular HGB Conc 35.2 g/dL (30-55); Mean Corpuscular Hemoglobin 33.9 pg (27-33); Mean Corpuscular Volume 96.3 fl (85-98); Nucleated Red Blood Cells % 0 %; Platelet Count 309 10^3/cmm (157-399); Red Blood Count 4.54 10^6/uL (3.85-5.65); White Blood Count 14.88 10^3/uL (3.29-11.43)
[2025-06-13] MEDS: ondansetron 2 mg/ML SDV 2 mL 4 MG IVP ×2 (03:15→22:40)
[2025-06-13] MEDS: morphine 4 mg/mL SDV 1 mL IVP (03:15)
[2025-06-13 03:30] LABS: Troponin(5th) Baseline 7 ng/L (0-10)
[2025-06-13 03:39] LABS: Blood Urea Nitrogen 7 mg/dL (8-23); Calcium 9.0 mg/dL (8.5-10.5); Carbon Dioxide 17 mmol/L (22-29); Chloride 95 mmol/L (98-107); Creatinine Clr Calc Pharmacy 95.4580; Glucose 116 mg/dL (65-115); NT Pro B Type Natriuretic Pept 499 pg/mL (0-125); Osmolality Calculated 265 mOsm/kg (285-295); Sodium 128 mmol/L (136-145)
[2025-06-13 03:41] LABS: Anion Gap 20.2 (5-19); Potassium 4.2 mmol/L (3.5-5.1)
--- NOTE | 2025-06-13 04:04 | ECG_ITS ---
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 Measurements Intervals Gates Rate: 66 P: 66 IN: 131 QRS: 33 QRSD: 85 T: 62 QT: 451 QTc: 476 Interpretive Statements SINUS RHYTHM SEPTAL MYOCARDIAL INFARCTION , OF INDETERMINATE AGE [40+ ms Q WAVE IN V1/V2] MODERATE T-WAVE ABNORMALITY, CONSIDER LATERAL ISCHEMIA [-0.1+ mV T-WAVE IN I/aVL/V5/V6] No previous ECG available for comparison Electronically Signed On 06-13-2025 21:54:29 JEWELRY CASTING MODEL MAKER by Derrick Liriano M.D. [email or web address] [id number]
--- NOTE | 2025-06-13 04:15 | XRR_ITS ---
PROCEDURE INFORMATION: Exam: XR Chest Exam date and time: 06/13/2025 4:15 AM Age: 60 years old Clinical indication: Pain; Angina pectoris; Additional info: Chest pain TECHNIQUE: Imaging protocol: Radiologic exam of the chest. Views: 1 view. COMPARISON: No relevant prior studies available. FINDINGS: Lungs: Unremarkable. No consolidation. Pleural spaces: No focal consolidation, pleural effusion, or pneumothorax. Heart/Mediastinum: No cardiomegaly. Bones/joints: Unremarkable. XR/XR chest 1V portable [id number] IMPRESSION: No focal consolidation, pleural effusion, or pneumothorax.
[2025-06-13 05:45] LABS: Troponin 5 2HR 7.93 ng/L (0-10); Troponin 5 2HR Delta 0.93 ABS# (0-10)
[2025-06-13] MEDS: hyDRALAzine 20 mg/mL INJ 1 mL 10 MG IVP ×2 (06:45→17:46)
--- NOTE | 2025-06-13 08:11 | P.HP_ITS ---
Providers/Chief Complaint 2 Admitting Physician: Florencia Norwood MD--- admitted today 06/13/2025 Chief Complaint: Chest pain History of Present Illness Swati Lomax is a 60 year old female with medical history significant coronary artery disease with a stent placement to RCA recent CO, history of hyperlipidemia accelerated hypertension. Patient while in the emergency room the blood pressure was fine initially and then skyrocketed to 200/88. 10 mg of hydralazine IV given and the blood pressure came down nicely to 146/64. I have initiated patient's blood pressure and optimized some. Lisinopril increased from 20-40 once daily and patient is cannot be getting 40 mg at this time I also initiated patient metoprolol titrate. I have also spoken to Dr. Sanderson concerning this patient and he will be seeing the patient and I will not be ordering any stress test he likes to see the patient and then decide. Nurses update the medications and the physician to reconcile. I have added medications such as Plavix for the patient EKG did not show any changes and patient troponin was unremarkable Review of Systems 2 Narrative: This 10 review upon 10 again reviewed we are unremarkable. Except for cardiovascular with chest pains Medications/Allergies Home Medications ?Medication ?Instructions ?Recorded ?Confirmed ?Last Taken ?Type diphenhydramine HCl 25 mg tablet 25 mg PO BEDTIME PRN Sleep 12/16/21 11/03/24 Unknown History (Sleep Aid (diphenhydramine)) aspirin 81 mg tablet,delayed 81 mg PO DAILY #90 tabs 0 12/18/21 11/03/24 Unknown Rx release nitroglycerin 0.4 mg sublingual See Rx Instructions .R oute 04/04/24 11/03/24 Unknown Rx tablet .COMPLEX #25 tabs metoprolol tartrate 25 mg tablet See Rx Instructions . Route 07/26/24 11/03/24 Unknown Rx .COMPLEX #180 tabs clopidogrel 75 mg tablet See Rx Instructions .Route 0 11/04/24 Unknown Rx .COMPLEX #90 tabs atorvastatin 40 mg tablet See Rx Instructions .Route 0 03/01/25 Unknown Rx .COMPLEX #90 tabs lisinopril 20 mg tablet See Rx Instructions .Route 0 03/01/25 Unknown Rx .COMPLEX #90 tabs Allergies Allergy/AdvReac Type Severity Reaction Status Date / Time No Known Allergies Allergy Verified 03/17/24 12:29 PFSH Acute 2 PFSH: Medical History Anterior wall myocardial infarction Atherosclerosis of coronary artery Tobacco abuse Hypertension ST elevation (STEMI) myocardial infarction Surgical History Stented coronary artery Social History Smoking and tobacco/nicotine status: current every day tobacco/nicotine user (1/2 PPD) Vitals/I&O/Wt Last Vital Signs Temp 97.9 F 06/13/25 03:21 Pulse 92 06/13/25 07:30 Resp 13 06/13/25 07:30 BP 155/70 06/13/25 07:30 Pulse Ox 95 06/13/25 07:30 O2 Del Method Room Air 06/13/25 06:20 Weight last 48 hrs Weight 54.431 kg Physical Exam 2 Narrative: Patient has remained chest pain-free. Troponin were unremarkable EKG unremarkable for patient significant history having cardiology to see the patient prior to a discharge. 1 thing again patient is with accelerated hypertension this could be contributing to the picture of what we are seeing. HEENT normocephalic atraumatic neck neck is supple cardiovascular heart rate is regular lungs are clear abdomen soft nontender nondistended unremarkable extremities are intact no edema has good pulses neurology has no focality lab studies lab studies reviewed and noted. Data 06/13/25 02:20 06/13/25 02:20 A&P Assessment and plan 1. Stented coronary artery: 2. Anterior wall myocardial infarction: 3. Encounter for smoking cessation counselin. Atherosclerosis of coronary artery: 5. Hypertension: 6. Tobacco abuse: 7. Chest pain: Plan: Chest pain with a history of underlying coronary artery disease - I have initiated patient Plavix - Patient to go to stepdown unit - Cardiology will be seeing this patient - I had just been contacted that Dr. Hallman is on-call and will be seeing this patient today. - Troponin has been unremarkable EKG unremarkable. - Continue statin Accelerated hypertension - These have been optimized by me will continue to follow through Chronic medical disorder hyperlipidemia/hypertension - Continue home medication that had also been modified. PDMP PDMP Reviewed: Not Reviewed Attestations 2 Medical Necessity Statement*: Patient is with chest pain with coronary artery disease and stent placement coming in with chest pain and accelerated hypertension need to be optimized prior to discharge likely 2 midnights Coding Level of Care Code 35132 Diagnoses Stented coronary artery Z95.5 Anterior wall myocardial infarction I21.09 Encounter for smoking cessation counseling Z71.6 Atherosclerosis of coronary artery I25.10 Hypertension I10 Tobacco abuse Z72.0 Chest pain R07.9 Time Spent (min) 60
--- NOTE | 2025-06-13 08:27 | USCV_ITS ---
Swati Lomax Age: 60 Gender: F : 1965 Exam Date: 06/13/2025 15:30 Ordering Phys: Evin Hardin MD Technologist: JOSE Exam Location: [facility] [place] Indication: CAD BP: 155 / 70 HR: 79 Rhythm: Sinus Technical Quality: Adequate MEASUREMENTS (Male / Female) Normal Values 2D ECHO LV Diastolic Diameter PLAX 4.0 cm 4.2 - 5.9 / 3.9 - 5.3 cm IVS Diastolic Thickness 0.8 cm 0.6 - 1.0 / 0.6 - 0.9 cm IVS Systolic Thickness 1.0 cm LVPW Diastolic Thickness 0.8 cm 0.6 - 1.0 / 0.6 - 0.9 cm LVPW Systolic Thickness 1.0 cm LVOT Diameter 2.0 cm LV Ejection Fraction 2D Teich 26.7 % LV Ejection Fraction MOD 4C 73.7 % LV Ejection Fraction MOD 2C 56.7 % LV Ejection Fraction 2C AL 58.7 % LA Diameter 2.6 cm RA Systolic Volume 4C AL 27.7 ml RA Systolic Volume 4C MOD 26.7 ml LA Sys Volume AL 33.4 cm cubed LA Sys Volume Index AL 21.6 cm cubed/m squared Aorta at Sinotubular Diameter 2.1 cm IVC Diameter 1.1 cm M-MODE LA Ao Ratio MM 1.3 AV Cusp Separation MM 1.6 cm DOPPLER AV Peak Velocity 118.0 cm/s LVOT Peak Velocity 115.0 cm/s AV Area Cont Eq vti 2.8 cm squared AV Area Cont Eq pk 3.0 cm squared MV Peak Velocity 126.0 cm/s MV Area PHT 3.9 cm squared Mitral E to A Ratio 0.7 TV Peak E Velocity 74.0 cm/s PV Peak Velocity 147.0 cm/s FINDINGS Left Ventricle Normal left ventricular size and systolic function, EF 57%.. Mild left ventricular hypertrophy. No regional wall motion abnormalities. Grade I/IV diastolic dysfunction (abnormal relaxation filling pattern), normal to mildly elevated filling pressures. Right Ventricle Normal right ventricular size and systolic function. Right Atrium Normal right atrial size. Left Atrium Mildly increased left atrial size. IA Septum Interventricular septum appears to be intact Mitral Valve No gross morphologic abnormalities Aortic Valve No gross morphologic abnormalities Tricuspid Valve No gross morphologic abnormalities Pulmonic Valve Pulmonic valve not well visualized. Pericardium No pericardial effusion. Aorta Plaque seen in the ascending aorta. IVC Normal inferior vena cava. CONCLUSIONS Normal left ventricular size and systolic function, EF 57%.. Mild left ventricular hypertrophy. No regional wall motion abnormalities. Grade I/IV diastolic dysfunction (abnormal relaxation filling pattern), normal to mildly elevated filling pressures. Mildly increased left atrial size. No significant valvular abnormalities. There is no pericardial effusion. There are no intracardiac masses. Compared to the study from 12/16/2021, there is improvement in the LV ejection fraction Dr Derrick Liriano MD [facility] (Electronically Signed) Final Date: 13 June 2025 17:52 S
[2025-06-13] MEDS: heparin 5,000 unit/mL INJ 1 mL 5000 UNIT SUBCUT ×2 (08:34→16:31)
[2025-06-13 09:02] LABS: Estmated Average Glucose 97; Hemoglobin A1C 5.0 % (4.0-6.0); Troponin 5 6HR 8.11 ng/L (0-10); Troponin 5 6HR Delta 1.11 ng/L (0-12)
[2025-06-13 09:05] LABS: Anion Gap 20.9 (5-19); Blood Urea Nitrogen 10 mg/dL (8-23); Calcium 9.4 mg/dL (8.5-10.5); Carbon Dioxide 20 mmol/L (22-29); Chloride 94 mmol/L (98-107); Creatinine Clr Calc Pharmacy 79.5483; Glucose 100 mg/dL (65-115); Osmolality Calculated 269 mOsm/kg (285-295); Potassium 4.9 mmol/L (3.5-5.1); Sodium 130 mmol/L (136-145)
--- NOTE | 2025-06-13 09:07 | ECG_ITS ---
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 Measurements Intervals [place] Rate: 83 P: -9 SD: 141 QRS: -12 QRSD: 83 T: 55 QT: 370 QTc: 436 Interpretive Statements SINUS RHYTHM SEPTAL MYOCARDIAL INFARCTION , OF INDETERMINATE AGE [40+ ms Q WAVE IN V1/V2] MODERATE T-WAVE ABNORMALITY, CONSIDER ANTERIOR ISCHEMIA [-0.1+ mV T-WAVE IN V3/V4] Compared to ECG 06/13/2025 04:04:10 No significant changes Electronically Signed On 06-13-2025 22:18:46 [employer]URIAL AGENT by Derrick Liriano M.D. [email or web address]
[2025-06-13 09:25] LABS: Iron 29 ug/dL (37-145); Thyroid Stimulating Hormone 2.60 uIU/mL (0.27-4.20); Total Iron Binding Capacity 277 mcg/dl; Unsaturated Iron Binding 248 ug/dL (112-347); Vitamin B12 455 pg/mL (232-1245)
--- NOTE | 2025-06-13 09:53 | P.CONIM_ITS ---
Providers/Reason For Consult 2 Consulting Physician/Specialty*: SILAS Liriano MD/cardiology Reason for Consult*: Patient with history of ASHD, presenting with chest pain/uncontrolled blood pressure Requesting Physician: Dr. Hardin Attending Physician: Evin Hardin MD History of Present Illness History of Present Illness Swati Lomax is a 60 year old female with a history of atherosclerotic heart disease and previous PCI, is admitted to the hospital through the emergency room, where she presented with complaints of chest pain. Cardiology consult is requested for further cardiac evaluation and recommendations. Apparently this patient has been in her baseline state of health up until 830 last night when she started having nausea vomiting. She went to bed around 9:00. Around midnight, she woke up with chest pain/discomfort. She also had some nausea. The pain was radiating across the chest. She may have some shortness of breath. No other associated symptoms or radiation of pain. She took 1 sublingual nitro which did not give any relief. So she called the ambulance and was brought to the emergency room. In the ambulance, she was given 3 sublingual nitro and aspirin to chew. Her symptoms started subsiding. In the emergency room, she was given morphine here. Her chest pain subsided completely in the emergency room. Intensity of the pain was up to 8/10. She seems to have no recurrence of chest pain since then. According the patient, she had a more or less similar symptoms prior to her heart attack in 2021. However the pain was much as severe at that time. Denies any fever, chills or any cough. She has a history of uncontrolled blood pressure. Has a history of dyslipidemia, COPD and smoking abuse . She presented with features of ST elevation myocardial infarction in December of 2021. Subsequent cardiac relative and revealed high-grade ostial stenosis of the LAD and high-grade lesion in the proximal segment of the right coronary artery. Patient underwent a PCI of both these lesions. She continues to smoke even though she has significantly cut back. Occasional alcohol intake. No other substance abuse. Her father had a multiple heart attacks and open heart surgery in his 50s and of the same. Mother had a heart attack in his 60s. No other relevant family history. Review of Systems 2 Narrative: CONSTITUTIONAL: No fever or chills. EYES: No blurring of vision or other visual disturbances lately. ENT: No hoarseness of voice, auditory disturbances or sore throat. CARDIOVASCULAR: As mentioned above. RESPIRATORY: No significant cough. GASTROINTESTINAL: No hematemesis or melena. GENITOURINARY: No dysuria or hematuria. INTEGUMENTARY: No skin rashes or history of skin cancer. NEURO: No transient ischemic attacks or amaurosis. PSYCHIATRIC: No history of psychosis or major depression. HEMATOLOGIC: No bleeding disorders or significant anemia. ENDOCRINE: No history of polyuria or polydipsia. MUSCULOSKELETAL: No recent joint pain or swelling. ALLERGY/IMMUNOLOGY: As mentioned above. Medications/Allergies Home Medications ?Medication ?Instructions ?Recorded ?Confirmed ?Last Taken ?Type diphenhydramine HCl 25 mg tablet 25 mg PO BEDTIME PRN Sleep 12/16/21 06/13/25 06/12/25 21:00 History (Sleep Aid (diphenhydramine)) aspirin 81 mg tablet,delayed 81 mg PO DAILY #90 tabs 0 12/18/21 06/13/25 06/12/25 Rx release nitroglycerin 0.4 mg sublingual See Rx Instructions .R oute 04/04/24 06/13/25 Unknown Rx tablet .COMPLEX #25 tabs metoprolol tartrate 25 mg tablet See Rx Instructions . Route 07/26/24 06/13/25 06/12/25 21:00 Rx .COMPLEX #180 tabs clopidogrel 75 mg tablet See Rx Instructions .Route 0 11/04/24 06/13/25 06/12/25 Rx .COMPLEX #90 tabs atorvastatin 40 mg tablet See Rx Instructions .Route 0 03/01/25 06/13/25 06/12/25 Rx .COMPLEX #90 tabs lisinopril 20 mg tablet See Rx Instructions .Route 0 03/01/25 06/13/25 06/12/25 Rx .COMPLEX #90 tabs Allergies Allergy/AdvReac Type Severity Reaction Status Date / Time No Known Allergies Allergy Verified 03/17/24 12:29 Current Medications Generic Name Dose Route Start Last Admin Trade Name Freq PRN Reason Stop Dose Admin Heparin Sodium (Porcine) 5,000 unit 06/13/25 08:15 06/13/25 08:34 Heparin 5,000 Unit/Ml Inj 1 Ml SUBCUT 5,000 unit Q8H NOEL Administration Hydralazine HCl 10 mg 06/13/25 06:39 06/13/25 06:45 Hydralazine 20 Mg/Ml Inj 1 Ml IVP 10 mg ONCE PRN Administration HTN Metoprolol Tartrate 25 mg 06/13/25 09:00 06/13/25 08:33 Metoprolol Tartrate 25 Mg Tablet PO 25 mg BID@0900,2100 NOEL Administration PFSH Acute 2 PFSH: Medical History Anterior wall myocardial infarction Atherosclerosis of coronary artery Tobacco abuse Primary hypertension ST elevation (STEMI) myocardial infarction Surgical History Stented coronary artery Social History Smoking and tobacco/nicotine status: current every day tobacco/nicotine user (/ PPD) Vitals/I&O/Wt Last Vital Signs Temp 97.9 F 06/13/25 03:21 Pulse 92 06/13/25 07:30 Resp 13 06/13/25 07:30 BP 155/70 06/13/25 07:30 Pulse Ox 95 06/13/25 07:30 O2 Del Method Room Air 06/13/25 06:20 Weight last 48 hrs Weight 120 lb Physical Exam 2 Narrative: GENERAL: The patient is alert and oriented times three. Not in any acute distress. HEENT: No significant pallor, icterus or lymphadenopathy.Oral cavity: There are no mucous membrane lesions. NECK: Trachea appears to be central. No masses noted. No JVD or thyromegaly appreciated. RESPIRATORY: Chest is symmetrical. No intercostals muscle retraction or any accessory muscle activation. There is no chest wall tenderness. Breath sounds are heard bilaterally. No rales or rhonchi heard. No evidence of any consolidation. BREASTS: Deferred. HEART: The heart sounds are normal. No S3 or S4. Short systolic murmur in the mitral area. No diastolic murmurs. No pericardial rub ABDOMEN: No vessel pulsations or distention. No tenderness. No organomegaly appreciated. Bowel sounds are normally heard. : Deferred. RECTAL: Deferred. LYMPHATIC: No lymphadenopathy noted in the neck. EXTREMITIES: No edema or cyanosis. No clubbing. Peripheral pulses are palpable but weak bilaterally MUSCULOSKELETAL: No acute joint deformities or swelling SKIN: There are no significant rashes or ecchymosis NEUROPSYCHIATRIC: The patient is alert and oriented x3. Appears to be in a good mood. No tremors or rigidity noted. Data 06/13/25 02:20 06/13/25 08:40 Other Labs: Laboratory Last Values WBC 14.88 10^3/uL (3.29-11.43) H 06/13/25 02:20 RBC 4.54 10^6/uL (3.85-5.65) 06/13/25 02:20 Hgb 15.40 g/dL (11.27-16.99) 06/13/25 02:20 Hct 43.7 % (36-47) 06/13/25 02:20 MCV 96.3 fl (85-98) 06/13/25 02:20 MCH 33.9 pg (27-33) H 06/13/25 02:20 MCHC 35.2 g/dL (30-55) 06/13/25 02:20 RDW 12.9 % (12.1-15.1) 06/13/25 02:20 Plt Count 309 10^3/cmm (157-399) 06/13/25 02:20 MPV 9.4 fL (7.4-10.4) 06/13/25 02:20 Neut % (Auto) 83.7 % 06/13/25 02:20 Lymph % (Auto) 9.4 % 06/13/25 02:20 [place] % (Auto) 5.8 % 06/13/25 02:20 Eos % (Auto) 0.1 % 06/13/25 02:20 Baso % (Auto) 0.4 % 06/13/25 02:20 Neut # (Auto) 12.45 10^3/uL (1.8-7.7) H 06/13/25 02:20 Lymph # (Auto) 1.4 10^3/uL (0.8-4.8) 06/13/25 02:20 [place] # (Auto) 0.9 10^3/uL (0.2-0.9) 06/13/25 02:20 Eos # (Auto) 0.0 10^3/uL (0.0-0.8) 06/13/25 02:20 Baso # (Auto) 0.1 10^3/uL (0.0-0.1) 06/13/25 02:20 Nucleated RBC % (auto) 0 % 06/13/25 02:20 Nucleated RBCs # 0.0 /100WBC 06/13/25 02:20 Sodium 130 mmol/L (136-145) L 06/13/25 08:40 Potassium 4.9 mmol/L (3.5-5.1) 06/13/25 08:40 Chloride 94 mmol/L (98-107) L 06/13/25 08:40 Carbon Dioxide 20 mmol/L (22-29) L 06/13/25 08:40 Anion Gap 20.9 (5-19) H 06/13/25 08:40 BUN 10 mg/dL (8-23) 06/13/25 08:40 Creatinine 0.6 mg/dL (0.5-0.9) 06/13/25 08:40 GFR Calculation 101.3 mL/min (90-130) 06/13/25 08:40 Glucose 100 mg/dL (65-115) 06/13/25 08:40 Estimat Average Glucose 97 06/13/25 08:40 Hemoglobin A1c 5.0 % (4.0-6.0) 06/13/25 08:40 Calculated Osmolality 269 mOsm/kg (285-295) L 06/13/25 08:40 Calcium 9.4 mg/dL (8.5-10.5) 06/13/25 08:40 Iron 29 ug/dL (37-145) L 06/13/25 08:40 TIBC 277 mcg/dl 06/13/25 08:40 % Saturation 10.4 % (20-50) L 06/13/25 08:40 Unsat Iron Binding 248 ug/dL (112-347) 06/13/25 08:40 Troponin T Baseline 7 ng/L (0-10) 06/13/25 02:20 Troponin T 120 Minute 7.93 ng/L (0-10) 06/13/25 05:00 Delta Troponin T 0.93 ABS# (0-10) 06/13/25 05:00 Troponin T Hi Sens 6Hr 8.11 ng/L (0-10) 06/13/25 08:40 Troponin T Hi Sens 6Hr Delta 1.11 ng/L (0-12) 06/13/25 08:40 NT-Pro-B Natriuret Pep 499 pg/mL (0-125) H 06/13/25 02:20 Vitamin B12 455 pg/mL (232-1245) 06/13/25 08:40 TSH 2.60 uIU/mL (0.27-4.20) 06/13/25 08:40 EKG 1: My Interpretation: Normal sinus rhythm with diffuse nonspecificST-T T wave changes in the anterolateral leads. Other data: The EKG showed sinus rhythm with nonspecific ST-T changes in the precordial leads. Poor R wave progression. A&P Assessment and plan 1. Atherosclerosis of [place] coronary artery of [place] heart with unstable angina pectoris: The patient's symptoms main system stable angina. EKG is unremarkable. We may get serial cardiac enzymes to rule out myocardial infarction. Patient may be treated with subcu Lovenox, beta-jasvir, aspirin, Plavix and topical nitrates. The EKG changes are nonspecific. 2. Primary hypertension: Last systolic blood pressure has been in the 200 range at the time of my examination. Patient's blood pressure is stage II. I may start her on amlodipine 10 mg p.o. daily and Nitropaste 1 inch every 6 hours 20 chest wall. The blood pressure need to be closely monitored. Medication adjustments will be made accordingly. 3. Tobacco abuse: Patient is in the process of quitting smoking. Once again strongly advised to quit as early as possible 4. Dyslipidemia: Patient is known to have dyslipidemia. Advised to continue on the current medications. Will have the follow-up evaluation as scheduled. Patient understands the importance of dietary compliance Plan: Echocardiogram would be helpful to evaluate LV function and rule out any other pathology. Continue on the current medications including Plavix and aspirin. Patient may be treated with IV heparin, p.o. beta-jasvir, aspirin and nitrates. Antihypertensive medications need to be optimized Based on the clinical progress on the results of the above, further recommendations will be made. Thank you for the opportunity to evaluate this patient and make these recommendations PDMP PDMP Reviewed: Not Reviewed Coding Level of Care Code 69609 Diagnoses Atherosclerosis of [place] coronary artery of [place] heart with unstable angina pectoris I25.110 [place] vs. transplanted heart: [place] heart Primary hypertension I10 Hypertension type: primary hypertension Tobacco abuse Z72.0 Dyslipidemia E78.5
--- NOTE | 2025-06-13 13:12 | PC.NURSE ---
DR HAINES VERBALIZED 10 MG PO AMLODIPINE DAILY AND 1 IN NITRO PASTE Q6HR.
[2025-06-13] MEDS: nitroglycerin 1 gm/inch oint Pkt 1 INCH TOPICAL ×2 (13:52→20:26)
[2025-06-13] MEDS: morphine 4 mg/mL SDV 1 mL 1 MG IVP (21:56)
[2025-06-13 22:13] LABS: Glucose Urine UA Negative (Normal); Nitrate Urine Negative (Negative); Specific Gravity, Urine 1.015 (1.005-1.030)
[2025-06-13 22:17] LABS: Add Urine Microscopic? YES
[2025-06-13 22:19] LABS: PCP Screen Urine Negative (Negative)
[2025-06-14] VITALS: BP 129/65; PULSE 76; RESP 26; O2SAT 94
[2025-06-14] MEDS: nitroglycerin 1 gm/inch oint Pkt 1 INCH TOPICAL ×2 (02:09→08:16)
[2025-06-14] MEDS: heparin 5,000 unit/mL INJ 1 mL 5000 UNIT SUBCUT ×2 (02:09→08:16)
[2025-06-14 03:53] VITALS: BP 138/79; PULSE 106; RESP 22; TEMP 36.6; O2SAT 96
[2025-06-14 05:08] LABS: Hematocrit 37.8 % (36-47); Hemoglobin 13.40 g/dL (11.27-16.99); Mean Corpuscular HGB Conc 35.4 g/dL (30-55); Mean Corpuscular Hemoglobin 33.9 pg (27-33); Mean Corpuscular Volume 95.7 fl (85-98); Nucleated Red Blood Cells % 0 %; Platelet Count 287 10^3/cmm (157-399); Red Blood Count 3.95 10^6/uL (3.85-5.65); White Blood Count 10.26 10^3/uL (3.29-11.43)
[2025-06-14 05:30] LABS: Alanine Aminotransferase 22 U/L (0-33); Albumin Level 3.9 g/dL (3.5-5.2); Alkaline Phosphatase 90 U/L (35-105); Anion Gap 16.3 (5-19); Aspartate Amino Transferase 21 U/L (0-32); Blood Urea Nitrogen 10 mg/dL (8-23); Calcium 9.0 mg/dL (8.5-10.5); Carbon Dioxide 21 mmol/L (22-29); Chloride 94 mmol/L (98-107); Creatinine Clr Calc Pharmacy 114.9660; Globulin 2.5 g/dL (1.3-4.6); Glucose 113 mg/dL (65-115); Magnesium 1.9 mg/dL (1.7-2.3); Osmolality Calculated 264 mOsm/kg (285-295); Potassium 4.3 mmol/L (3.5-5.1); Sodium 127 mmol/L (136-145); Total Protein 6.4 g/dL (6.6-8.7)
[2025-06-14 05:33] LABS: Cholesterol 118 mg/dL (0-200); HDL Cholesterol 64 mg/dL (60-100); Triglycerides 56 mg/dL (0-150); VLDL Cholestrol Calculation 11 mg/dL (0-30)
[2025-06-14 07:39] VITALS: BP 113/55; PULSE 85; RESP 18; TEMP 37.1; O2SAT 92
[2025-06-14 08:16] VITALS: BP 113/55; PULSE 83
[2025-06-14] MEDS: polyethylene glycol 3350 Pkt 17 gm PO (08:16)
--- NOTE | 2025-06-14 08:29 | P.PN_ITS ---
Subjective 2 Subjective: Patient has no chest pain. Denies any shortness of breath. Blood pressure seems to be under control. Myocardial infarction is ruled out. Medications: Medication Review Details: Current Medications Amlodipine Besylate (Amlodipine 10 Mg Tablet) 10 mg PO DAILY [facility] Last Admin: 06/14/25 05:51 Dose: 10 mg Aspirin (Aspirin 81 Mg Ec Tablet) 81 mg PO DAILY [facility] Last Admin: 06/14/25 05:51 Dose: 81 mg Atorvastatin Calcium (Atorvastatin 40 Mg Tablet) 40 mg PO BEDTIME [facility] Last Admin: 06/13/25 20:26 Dose: 40 mg Carvedilol (Carvedilol 6.25 Mg Tablet) 6.25 mg PO BID [facility] Last Admin: 06/14/25 05:51 Dose: 6.25 mg Clopidogrel Bisulfate (Clopidogrel 75 Mg Tablet) 75 mg PO DAILY [facility] Last Admin: 06/14/25 05:51 Dose: 75 mg Heparin Sodium (Porcine) (Heparin 5,000 Unit/Ml Inj 1 Ml) 5,000 unit SUBCUT Q8H [facility] Last Admin: 06/14/25 08:16 Dose: 5,000 unit Hydralazine HCl (Hydralazine 20 Mg/Ml Inj 1 Ml) 10 mg IVP ONCE PRN PRN Reason: HTN Last Admin: 06/13/25 06:45 Dose: 10 mg Hydralazine HCl (Hydralazine 25 Mg Tablet) 25 mg PO TID [facility] Last Admin: 06/14/25 05:51 Dose: 25 mg Lisinopril (Lisinopril 20 Mg Tablet) 40 mg PO DAILY [facility] Last Admin: 06/14/25 05:51 Dose: 40 mg Morphine Sulfate (Morphine 4 Mg/Ml Sdv 1 Ml) 1 mg IVP Q4H PRN PRN Reason: SEVERE PAIN Last Admin: 06/13/25 21:56 Dose: 1 mg Nitroglycerin (Nitroglycerin 1 Gm/Inch Oint Pkt) 1 inch TOPICAL Q6H [facility] Last Admin: 06/14/25 08:16 Dose: 1 inch Ondansetron HCl (Ondansetron 2 Mg/Ml Sdv 2 Ml) 4 mg IVP Q4H PRN PRN Reason: NAUSEA AND VOMITING Last Admin: 06/13/25 22:40 Dose: 4 mg Polyethylene Glycol (Polyethylene Glycol 3350 Pkt 17 Gm) 17 gm PO DAILY [facility] Last Admin: 06/14/25 08:16 Dose: 17 gm Vitals/I&O/Wt Last Vital Signs Temp 98.8 F 06/14/25 07:39 Pulse 83 06/14/25 08:16 Resp 18 06/14/25 07:39 BP 113/55 06/14/25 08:16 Pulse Ox 92 06/14/25 07:39 O2 Del Method Room Air 06/14/25 07:39 06/13/25 06/14/25 06/14/25 22:59 06:59 14:59 Intake Total 200 / 200 360 / 560 120 / 120 Output Total 300 / 300 Balance -100 / -100 360 / 260 120 / 120 Weight last 48 hrs Weight 109 lb 9.116 oz Weight 110 lb 3.698 oz Weight 110 lb 3.698 oz Weight 120 lb Physical Exam 2 Narrative: GENERAL: The patient is alert and oriented times three. Not in any acute distress. HEENT: No significant pallor, icterus or lymphadenopathy.Oral cavity: There are no mucous membrane lesions. NECK: Trachea appears to be central. No masses noted. No JVD or thyromegaly appreciated. RESPIRATORY: Chest is symmetrical. No intercostals muscle retraction or any accessory muscle activation. There is no chest wall tenderness. Breath sounds are heard bilaterally. No rales or rhonchi heard. No evidence of any consolidation. BREASTS: Deferred. HEART: The heart sounds are normal. No S3 or S4. Short systolic murmur in the mitral area. No diastolic murmurs. No pericardial rub ABDOMEN: No vessel pulsations or distention. No tenderness. No organomegaly appreciated. Bowel sounds are normally heard. : Deferred. RECTAL: Deferred. LYMPHATIC: No lymphadenopathy noted in the neck. EXTREMITIES: No edema or cyanosis. No clubbing. Peripheral pulses are palpable but weak bilaterally MUSCULOSKELETAL: No acute joint deformities or swelling SKIN: There are no significant rashes or ecchymosis NEUROPSYCHIATRIC: The patient is alert and oriented x3. Appears to be in a good mood. No tremors or rigidity noted. Data 06/14/25 04:10 06/14/25 04:10 Other Labs: Laboratory Last Values WBC 10.26 10^3/uL (3.29-11.43) 06/14/25 04:10 RBC 3.95 10^6/uL (3.85-5.65) 06/14/25 04:10 Hgb 13.40 g/dL (11.27-16.99) 06/14/25 04:10 Hct 37.8 % (36-47) 06/14/25 04:10 MCV 95.7 fl (85-98) 06/14/25 04:10 MCH 33.9 pg (27-33) H 06/14/25 04:10 MCHC 35.4 g/dL (30-55) 06/14/25 04:10 RDW 13.1 % (12.1-15.1) 06/14/25 04:10 Plt Count 287 10^3/cmm (157-399) 06/14/25 04:10 MPV 9.6 fL (7.4-10.4) 06/14/25 04:10 Neut % (Auto) 77.3 % 06/14/25 04:10 Lymph % (Auto) 12.6 % 06/14/25 04:10 [place] % (Auto) 9.3 % 06/14/25 04:10 Eos % (Auto) 0.1 % 06/14/25 04:10 Baso % (Auto) 0.2 % 06/14/25 04:10 Neut # (Auto) 7.94 10^3/uL (1.8-7.7) H 06/14/25 04:10 Lymph # (Auto) 1.3 10^3/uL (0.8-4.8) 06/14/25 04:10 [place] # (Auto) 1.0 10^3/uL (0.2-0.9) H 06/14/25 04:10 Eos # (Auto) 0.0 10^3/uL (0.0-0.8) 06/14/25 04:10 Baso # (Auto) 0.0 10^3/uL (0.0-0.1) 06/14/25 04:10 Nucleated RBC % (auto) 0 % 06/14/25 04:10 Nucleated RBCs # 0.0 /100WBC 06/14/25 04:10 Sodium 127 mmol/L (136-145) L 06/14/25 04:10 Potassium 4.3 mmol/L (3.5-5.1) 06/14/25 04:10 Chloride 94 mmol/L (98-107) L 06/14/25 04:10 Carbon Dioxide 21 mmol/L (22-29) L 06/14/25 04:10 Anion Gap 16.3 (5-19) 06/14/25 04:10 BUN 10 mg/dL (8-23) 06/14/25 04:10 Creatinine 0.4 mg/dL (0.5-0.9) L 06/14/25 04:10 GFR Calculation 161.7 mL/min (90-130) H 06/14/25 04:10 Glucose 113 mg/dL (65-115) 06/14/25 04:10 Estimat Average Glucose 97 06/13/25 08:40 Hemoglobin A1c 5.0 % (4.0-6.0) 06/13/25 08:40 Calculated Osmolality 264 mOsm/kg (285-295) L 06/14/25 04:10 Calcium 9.0 mg/dL (8.5-10.5) 06/14/25 04:10 Phosphorus 3.5 mg/dL (2.5-4.5) 06/14/25 04:10 Magnesium 1.9 mg/dL (1.7-2.3) 06/14/25 04:10 Iron 29 ug/dL (37-145) L 06/13/25 08:40 TIBC 277 mcg/dl 06/13/25 08:40 % Saturation 10.4 % (20-50) L 06/13/25 08:40 Unsat Iron Binding 248 ug/dL (112-347) 06/13/25 08:40 Total Bilirubin 1.0 mg/dL (0.15-1.2) 06/14/25 04:10 AST 21 U/L (0-32) 06/14/25 04:10 ALT 22 U/L (0-33) 06/14/25 04:10 Alkaline Phosphatase 90 U/L (35-105) 06/14/25 04:10 Troponin T Baseline 7 ng/L (0-10) 06/13/25 02:20 Troponin T 120 Minute 7.93 ng/L (0-10) 06/13/25 05:00 Delta Troponin T 0.93 ABS# (0-10) 06/13/25 05:00 Troponin T Hi Sens 6Hr 8.11 ng/L (0-10) 06/13/25 08:40 Troponin T Hi Sens 6Hr Delta 1.11 ng/L (0-12) 06/13/25 08:40 NT-Pro-B Natriuret Pep 499 pg/mL (0-125) H 06/13/25 02:20 Total Protein 6.4 g/dL (6.6-8.7) L 06/14/25 04:10 Albumin 3.9 g/dL (3.5-5.2) 06/14/25 04:10 Globulin 2.5 g/dL (1.3-4.6) 06/14/25 04:10 Triglycerides 56 mg/dL (0-150) 06/14/25 04:10 Cholesterol 118 mg/dL (0-200) 06/14/25 04:10 LDL Cholesterol, Calc 43 mg/dL (50-129) L 06/14/25 04:10 Total VLDL Cholesterol 11 mg/dL (0-30) 06/14/25 04:10 HDL Cholesterol 64 mg/dL (60-100) 06/14/25 04:10 Cholesterol/HDL Ratio 1.84 mg/dL (0.0-4.40) 06/14/25 04:10 Vitamin B12 455 pg/mL (232-1245) 06/13/25 08:40 Folate > 20.0 ng/mL (4.8-37.3) 06/14/25 04:10 TSH 2.60 uIU/mL (0.27-4.20) 06/13/25 08:40 Urine Color Yellow (Yellow) 06/13/25 21:45 Urine Appearance Clear (CLEAR) 06/13/25 21:45 Urine pH 5.0 (5-7) 06/13/25 21:45 Ur Specific [place] 1.015 (1.005-1.030) 06/13/25 21:45 Urine Protein Negative (Negative) 06/13/25 21:45 Urine Glucose (UA) Negative (Normal) 06/13/25 21:45 Urine Ketones 1+ (Negative) H 06/13/25 21:45 Urine Blood Negative (Negative) 06/13/25 21:45 Urine Nitrate Negative (Negative) 06/13/25 21:45 Urine Bilirubin Negative (Negative) 06/13/25 21:45 Urine Urobilinogen 1.0 mg/dL (Negative) 11/04/25 21:45 Ur Leukocyte Esterase 2+ (Negative) A 06/13/25 21:45 Urine RBC 0-2 /hpf (0-2) 06/13/25 21:45 Urine WBC 0-5 /hpf (0-5) 06/13/25 21:45 Ur Squamous Epith Cells 6-10 /hpf (0-5) 06/13/25 21:45 Amorphous Sediment Not Reportable 06/13/25 21:45 Urine Bacteria None seen /hpf (NONE) 06/13/25 21:45 Hyaline Casts 3.71 /lpf 06/13/25 21:45 Urine Opiates Screen Positive ng/mL (Negative) H 06/13/25 21:45 Ur Barbiturates Screen Negative ng/mL (Negative) 06/13/25 21:45 Ur Phencyclidine Scrn Negative ng/mL (Negative) 06/13/25 21:45 Ur Amphetamines Screen Negative ng/mL (Negative) 06/13/25 21:45 U Benzodiazepines Scrn Negative ng/mL (Negative) 06/13/25 21:45 Urine Cocaine Screen Negative ng/mL (Negative) 06/13/25 21:45 U Marijuana (THC) Screen Positive ng/mL (Negative) H 06/13/25 21:45 A&P Assessment and plan 1. Atherosclerosis of [place] coronary artery of [place] heart with unstable angina pectoris: Patient chest pain is atypical. Possibility of underlying coronary ischemia cannot be excluded. The Myocardial perfusion imaging could not be done today. 2. Primary hypertension: Significant improvement of the blood pressure. May continue on the current medications. 3. Tobacco abuse: Patient is in the process of quitting smoking. Once again strongly advised to quit as early as possible 4. Dyslipidemia: Patient is known to have dyslipidemia. Advised to continue on the current medications. Will have the follow-up evaluation as scheduled. Patient understands the importance of dietary compliance Plan: Since the patient remained stable with no evidence of mitral injury or any acute coronary ischemia, it might be appropriate to do the Myocardial perfusion imaging as an outpatient. If she is remaining stable, may be discharged home to have the stress test done as an outpatient, as early as possible Will be seen in the [facility] in 2 weeks PDMP PDMP Reviewed: Not Reviewed Attestations 2 Medical Necessity Statement*: Disposition as per the primary Coding Level of Care Code 12817 Diagnoses Atherosclerosis of [place] coronary artery of [place] heart with unstable angina pectoris I25.110 [place] vs. transplanted heart: [place] heart Primary hypertension I10 Hypertension type: primary hypertension Tobacco abuse Z72.0 Dyslipidemia E78.5
[2025-06-14 08:58] LABS: Troponin T (5th) Once 9 ng/L (0-10)
--- NOTE | 2025-06-14 09:23 | PC.CHAP ---
Pastoral Care Encounter/Spiritual Assessment Type of Contact [] Declined statue maker visit [] Patient/Family/Request visit [] Outpatient visit [] Follow-up visit [] Physician referral [] Code/Alert [x] Routine visit [] Staff referral [] Actively dying [] Patient sleeping [x] Family support [] [] Out of room [] Palliative care [] [] Receiving care in room [] Pre-surgical visit [] Trauma [] Long length of stay [] ICU visit [] Other: Relational/Emotional Strength [x] Patient feels connected with others/family/visitors/staff [] Distress [] Loneliness/isolation [] Abandonment Spirituality of Patient [x] Person of [place] [] Attends Pentecostalism of their [place] [x] Believes in Prayer [] Reads Bible or Yazidism materials [] There are Spiritual issues to be addressed Clinical Services Director Interventions [x] Prayer [x] Active listening [x] Non-anxious presence [x] Spiritual/emotional support [] Crisis/trauma care [] Spiritual counseling [] Bereavement support [] Provided bereavement packet [] Provided Bible/devotional materials [] Provided toy/stuffed animal, coloring book to patient or family member [] Provided Communion [] Anointing/[place] [] Salvation [x] Completed spiritual assessment [] Other: Impact on Illness or Injury [] Angry [] Fearful [] Anxious [] Often cries [] Exhaustion [] Unable to work [] Unable to attend faith [] Unable to walk/stand [] Unable to read [] Unable to drive [] Unable to eat/drink [] Unable to sleep [] Unable to be with family [] Patient intubated [] Other: Summary Time spent with patient 5 min
[2025-06-14 11:39] VITALS: BP 124/66; PULSE 88; RESP 25; O2SAT 93
--- NOTE | 2025-06-14 12:52 | P.DS_ITS ---
Discharge Providers Date of Admission: 06/13/25 04:18 Date of Discharge: June 14, 2025 Attending Provider at Admission: Florencia Norwood MD Attending Provider at Discharge: Evin Hardin MD Consults: Cardiology: Dr. Liriano Diagnoses at Discharge Discharge Diagnosis 1. Atherosclerosis of [place] coronary artery of [place] heart with unstable angina pectoris: 2. Primary hypertension: 3. Tobacco abuse: 4. Dyslipidemia: Reason for Visit Reason for Visit: Chest pain Brief History: Surya Lomax is a 60 year old female with medical history significant coronary artery disease with a stent placement to RCA recent [place], history of hyperlipidemia accelerated hypertension. Patient while in the emergency room the blood pressure was fine initially and then skyrocketed to 200/88. 10 mg of hydralazine IV given and the blood pressure came down nicely to 146/64. I have initiated patient's blood pressure and optimized some. Lisinopril increased from 20-40 once daily and patient is cannot be getting 40 mg at this time I also initiated patient metoprolol titrate. I have also spoken to Dr. Sanderson concerning this patient and he will be seeing the patient and I will not be ordering any stress test he likes to see the patient and then decide. Nurses update the medications and the physician to reconcile. I have added medications such as Plavix for the patient EKG did not show any changes and patient troponin was unremarkable Hospital Course Hospital Course Patient was admitted to the hospital for evaluation and management of unstable angina and hypertensive emergency. Her antihypertensives were adjusted. Her chest pain resolved after her blood pressures were more controlled. Troponin cycled remained negative. Cardiology was consulted. Echocardiogram was done which showed normal EF with no regional wall motion abnormality and grade 1 diastolic dysfunction. She has been discharged in hemodynamically stable condition on adjusted antihypertensives with advised to follow-up as an outpatient for Lexiscan stress test. She is to maintain a blood pressure diary and follow-up with her primary care provider for further adjustment of antihypertensive as needed. Physical Exam Narrative: General: No acute distress, AO x3 HEENT: PERRLA, pupils bilaterally equal and reactive Chest: Normal vesicular breath sounds, no added sounds, equal good air entry bilaterally CVS: S1-S2 regular, no murmurs, no tachycardia, no gallops, no rubs Abdomen: Soft, nontender, no organomegaly, bowel sounds present Neuro: No focal deficits, no facial deformity, AO x3, power 5/5 in all limbs Discharge Data Studies Completed and Pending Completed Studies During Hospitalization Category Date Time Status XR chest 1V portable [id number] Stat Exams 06/13/25 04:15 Completed CV. echo complete* [id number] Routine Ultrasound 06/13/25 08:27 Completed Pending at discharge Category Date Time Status Sestamibi Stress Test Request Routine Exams 06/14/25 08:17 Ordered Complete Blood Count w/Auto AM LABS Lab 06/15/25 04:00 Ordered Comprehensive Metabolic Panel AM LABS Lab 06/15/25 04:00 Ordered MAG [Magnesium] AM LABS Lab 06/15/25 04:00 Ordered MAG [Magnesium] AM LABS Lab 06/16/25 04:00 Ordered NM reynaldo perf SPECT r/s* [id number] Routine Nuc Med 06/15/25 08:17 Ordered Radiology Impressions Chest X-Ray 06/13/25 04:15 IMPRESSION: No focal consolidation, pleural effusion, or pneumothorax. Echocardiogram: CONCLUSIONS Normal left ventricular size and systolic function, EF 57%.. Mild left ventricular hypertrophy. No regional wall motion abnormalities. Grade I/IV diastolic dysfunction (abnormal relaxation filling pattern), normal to mildly elevated filling pressures. Mildly increased left atrial size. No significant valvular abnormalities. There is no pericardial effusion. There are no intracardiac masses. Compared to the study from 12/16/2021, there is improvement in the LV ejection fraction Dr Derrick Liriano MD [facility] (Electronically Signed) Final Date: 13 June 2025 Laboratory Results WBC 10.26 10^3/uL (3.29-11.43) 06/14/25 04:10 RBC 3.95 10^6/uL (3.85-5.65) 06/14/25 04:10 Hgb 13.40 g/dL (11.27-16.99) 06/14/25 04:10 Hct 37.8 % (36-47) 06/14/25 04:10 MCV 95.7 fl (85-98) 06/14/25 04:10 MCH 33.9 pg (27-33) H 06/14/25 04:10 MCHC 35.4 g/dL (30-55) 06/14/25 04:10 RDW 13.1 % (12.1-15.1) 06/14/25 04:10 Plt Count 287 10^3/cmm (157-399) 06/14/25 04:10 MPV 9.6 fL (7.4-10.4) 06/14/25 04:10 Neut % (Auto) 77.3 % 06/14/25 04:10 Lymph % (Auto) 12.6 % 06/14/25 04:10 [place] % (Auto) 9.3 % 06/14/25 04:10 Eos % (Auto) 0.1 % 06/14/25 04:10 Baso % (Auto) 0.2 % 06/14/25 04:10 Neut # (Auto) 7.94 10^3/uL (1.8-7.7) H 06/14/25 04:10 Lymph # (Auto) 1.3 10^3/uL (0.8-4.8) 06/14/25 04:10 [place] # (Auto) 1.0 10^3/uL (0.2-0.9) H 06/14/25 04:10 Eos # (Auto) 0.0 10^3/uL (0.0-0.8) 06/14/25 04:10 Baso # (Auto) 0.0 10^3/uL (0.0-0.1) 06/14/25 04:10 Nucleated RBC % (auto) 0 % 06/14/25 04:10 Nucleated RBCs # 0.0 /100WBC 06/14/25 04:10 Sodium 127 mmol/L (136-145) L 06/14/25 04:10 Potassium 4.3 mmol/L (3.5-5.1) 06/14/25 04:10 Chloride 94 mmol/L (98-107) L 06/14/25 04:10 Carbon Dioxide 21 mmol/L (22-29) L 06/14/25 04:10 Anion Gap 16.3 (5-19) 06/14/25 04:10 BUN 10 mg/dL (8-23) 06/14/25 04:10 Creatinine 0.4 mg/dL (0.5-0.9) L 06/14/25 04:10 GFR Calculation 161.7 mL/min (90-130) H 06/14/25 04:10 Glucose 113 mg/dL (65-115) 06/14/25 04:10 Estimat Average Glucose 97 06/13/25 08:40 Hemoglobin A1c 5.0 % (4.0-6.0) 06/13/25 08:40 Calculated Osmolality 264 mOsm/kg (285-295) L 06/14/25 04:10 Calcium 9.0 mg/dL (8.5-10.5) 06/14/25 04:10 Phosphorus 3.5 mg/dL (2.5-4.5) 06/14/25 04:10 Magnesium 1.9 mg/dL (1.7-2.3) 06/14/25 04:10 Iron 29 ug/dL (37-145) L 06/13/25 08:40 TIBC 277 mcg/dl 06/13/25 08:40 % Saturation 10.4 % (20-50) L 06/13/25 08:40 Unsat Iron Binding 248 ug/dL (112-347) 06/13/25 08:40 Total Bilirubin 1.0 mg/dL (0.15-1.2) 06/14/25 04:10 AST 21 U/L (0-32) 06/14/25 04:10 ALT 22 U/L (0-33) 06/14/25 04:10 Alkaline Phosphatase 90 U/L (35-105) 06/14/25 04:10 Troponin T 5th Gen ng/L 9 ng/L (0-10) 06/14/25 04:10 Troponin T Baseline 7 ng/L (0-10) 06/13/25 02:20 Troponin T 120 Minute 7.93 ng/L (0-10) 06/13/25 05:00 Delta Troponin T 0.93 ABS# (0-10) 06/13/25 05:00 Troponin T Hi Sens 6Hr 8.11 ng/L (0-10) 06/13/25 08:40 Troponin T Hi Sens 6Hr Delta 1.11 ng/L (0-12) 06/13/25 08:40 NT-Pro-B Natriuret Pep 499 pg/mL (0-125) H 06/13/25 02:20 Total Protein 6.4 g/dL (6.6-8.7) L 06/14/25 04:10 Albumin 3.9 g/dL (3.5-5.2) 06/14/25 04:10 Globulin 2.5 g/dL (1.3-4.6) 06/14/25 04:10 Triglycerides 56 mg/dL (0-150) 06/14/25 04:10 Cholesterol 118 mg/dL (0-200) 06/14/25 04:10 LDL Cholesterol, Calc 43 mg/dL (50-129) L 06/14/25 04:10 Total VLDL Cholesterol 11 mg/dL (0-30) 06/14/25 04:10 HDL Cholesterol 64 mg/dL (60-100) 06/14/25 04:10 Cholesterol/HDL Ratio 1.84 mg/dL (0.0-4.40) 06/14/25 04:10 Vitamin B12 455 pg/mL (232-1245) 06/13/25 08:40 Folate > 20.0 ng/mL (4.8-37.3) 06/14/25 04:10 TSH 2.60 uIU/mL (0.27-4.20) 06/13/25 08:40 Urine Color Yellow (Yellow) 06/13/25 21:45 Urine Appearance Clear (CLEAR) 06/13/25 21:45 Urine pH 5.0 (5-7) 06/13/25 21:45 Ur Specific [place] 1.015 (1.005-1.030) 06/13/25 21:45 Urine Protein Negative (Negative) 06/13/25 21:45 Urine Glucose (UA) Negative (Normal) 06/13/25 21:45 Urine Ketones 1+ (Negative) H 06/13/25 21:45 Urine Blood Negative (Negative) 06/13/25 21:45 Urine Nitrate Negative (Negative) 06/13/25 21:45 Urine Bilirubin Negative (Negative) 06/13/25 21:45 Urine Urobilinogen 1.0 mg/dL (Negative) 06/13/25 21:45 Ur Leukocyte Esterase 2+ (Negative) A 06/13/25 21:45 Urine RBC 0-2 /hpf (0-2) 06/13/25 21:45 Urine WBC 0-5 /hpf (0-5) 06/13/25 21:45 Ur Squamous Epith Cells 6-10 /hpf (0-5) 06/13/25 21:45 Amorphous Sediment Not Reportable 06/13/25 21:45 Urine Bacteria None seen /hpf (NONE) 06/13/25 21:45 Hyaline Casts 3.71 /lpf 06/13/25 21:45 Urine Opiates Screen Positive ng/mL (Negative) H 06/13/25 21:45 Ur Barbiturates Screen Negative ng/mL (Negative) 06/13/25 21:45 Ur Phencyclidine Scrn Negative ng/mL (Negative) 06/13/25 21:45 Ur Amphetamines Screen Negative ng/mL (Negative) 06/13/25 21:45 U Benzodiazepines Scrn Negative ng/mL (Negative) 06/13/25 21:45 Urine Cocaine Screen Negative ng/mL (Negative) 06/13/25 21:45 U Marijuana (THC) Screen Positive ng/mL (Negative) H 06/13/25 21:45 Vitals Last Vital Signs Temp 98.8 F 06/14/25 07:39 Pulse 88 06/14/25 11:39 Resp 25 H 06/14/25 11:39 BP 124/66 06/14/25 11:39 Pulse Ox 93 06/14/25 11:39 O2 Del Method Room Air 06/14/25 11:39 Discharge Plan Discharge Patient Disposition: Home Condition: Stable Prescriptions: Continued nitroglycerin 0.4 mg tablet, sublingual See Rx Instructions .ROUTE .COMPLEX Qty: 25 2RF Dose Instruction: take ONE TABLET sublingually EVERY FIVE minutes as needed for CHEST pain Rx Instructions: take ONE TABLET sublingually EVERY FIVE minutes as needed for CHEST pain clopidogrel 75 mg tablet See Rx Instructions .ROUTE .COMPLEX Qty: 90 3RF Dose Instruction: TAKE 1 TABLET BY MOUTH DAILY Rx Instructions: TAKE 1 TABLET BY MOUTH DAILY atorvastatin 40 mg tablet See Rx Instructions .ROUTE .COMPLEX Qty: 90 3RF Dose Instruction: TAKE ONE TABLET BY MOUTH DAILY Rx Instructions: TAKE ONE TABLET BY MOUTH DAILY diphenhydramine HCl [Sleep Aid (diphenhydramine)] 25 mg Tablet 25 mg PO BEDTIME PRN (Reason: Sleep) aspirin 81 mg Tablet,Delayed Release (Dr/Ec) 81 mg PO DAILY Qty: 90 3RF Changed lisinopril 20 mg tablet 40 mg PO DAILY Qty: 90 3RF Dose Instruction: TAKE ONE TABLET BY MOUTH DAILY Discontinued metoprolol tartrate 25 mg tablet See Rx Instructions .ROUTE .COMPLEX Qty: 180 3RF Dose Instruction: TAKE ONE TABLET BY MOUTH TWICE DAILY AT 9am AND AT 9pm Rx Instructions: TAKE ONE TABLET BY MOUTH TWICE DAILY AT 9am AND AT 9pm Discharge Order = DC NOW: Discharge Order (Routine); Ordered 06/14/25 Ordered By: Evin Hardin Other Ambulatory Orders: Sestamibi Stress Test Request (Routine) Timeframe: 1 Week Facility: [facility] - Location: [facility] Ordered By: Evin Hardin Discharge Diet: Cardiac Discharge Activity: Resume usual activity and Increase activity as tolerated Patient Instructions: Opioid Safety, Patient Portal & [place] Instructions Activity Restrictions/Additional Instructions: Do not take metoprolol. Instead take Coreg 6.25 mg twice daily. Dose of lisinopril has been changed to 40 mg daily. Amlodipine 10 mg oral daily and hydralazine 25 mg 3 times a day has been added to your medication list. Please check your blood pressure daily at home maintain blood pressure diary and follow-up with your primary care provider within next 2 weeks for further adjustment of antihypertensive. Please follow-up as an outpatient for Lexiscan stress test. Discharge was delayed as blood pressure was monitored on adjusted antihype rtensive. Discharge Attestations Time Spent in Discharge Care*: greater than 30 min Specific Discharge Activities: educating patient, educating and/or supporting family/caregiver, discussing with pcp/other providers, discussing with case work aide/social workers/dc planners, documenting/other paperwork and evaluating patient/reviewing data Status at Discharge: Cognitive status at discharge: cognitively intact , Behavioral status at discharge: cooperative , Functional status at discharge: independent ambulation , Overall status at discharge: patient is back to baseline Quality Metrics Clinical Quality Measures [ No reported AMI, CVA or VTE this stay] Coding Level of Care Code 31532 Total time (in minutes) for Discharge: 65 Diagnoses Atherosclerosis of [place] coronary artery of [place] heart with unstable angina pectoris I25.110 [place] vs. transplanted heart: [place] heart Primary hypertension I10 Hypertension type: primary hypertension Tobacco abuse Z72.0 Dyslipidemia E78.5
[2025-06-14 13:39] VITALS: BP 124/66; PULSE 76; RESP 25; O2SAT 96
== END 2025-06-14 14:46 | disposition home or self-care (01) | DRG 305 ==
LOC: ER 02:33 → ER IP 04:29 → CSU 15:15
PROVIDERS: Admitting Provider Internal Medicine; Emergency Provider Emergency Medicine; Visit Provider Student in an Organized Health Care Education/Training Program
DX: I16.1 Hypertensive emergency (principal); I25.10 Atherosclerotic heart disease of native coronary artery without angina pectoris; Z95.5 Presence of coronary angioplasty implant and graft; I10 Essential (primary) hypertension; F17.210 Nicotine dependence, cigarettes, uncomplicated; E78.5 Hyperlipidemia, unspecified; I25.2 Old myocardial infarction
CPT/HCPCS: 36415; 71045; 80048; 80053; 80061; 80306; 81001; 82607; 82746; 83036; 83540; 83550; 83735; 83880; 84100; 84443; 84484; 85025; 93005; 93306; 96372; 96374; 96375; 99285; J0360; J1644; J2270; J2405; J9999